=== PATIENT | female | born 1965 | race African-American/Black ===

== ENCOUNTER 2019-02-01 21:55 | Inpatient (IN) | payer MEDICAID, OTHER ==
[~2019-02-01] VITALS: Ht 167.6 cm; Wt 124.3 kg
[2019-02-01 21:54] VITALS: BP 136/86
[~2019-02-01 21:55] MED LIST: BACTRIM DS TAB1 EAC1 ORAL; CLINDAMYCIN HC150 MG ORAL; IBUPROFEN600 MG ORAL; KEFLEX500 MG ORAL; NORCO 10/3251 EA ORAL; NORCO 5-325 TA1 EACH ORAL; ROBAXIN-750750 MG PO
--- NOTE | 2019-02-01 21:58 | NUR ---
ED Nurse Note: Patient was BIBA fro home due to chest pain 03/18. Patient states that pain is radiating to the left arm. AAO x4, VSS at this time, skin is dry warm to touch.
--- NOTE | 2019-02-01 22:06 | Emergency Room Report ---
History of Present Illness General Chief Complaint: Chest Pain Source: Patient Present Illness HPI This is a 53-year-old female with a history of high blood pressure and hyperlipidemia. Also history of arthritis and chronic pain. She presents with chief lien of chest pain. Onset for last 2 hours. Pain to the left side going to her neck and upper arm. Pain is 7 out of 10. No nausea no vomiting. No exertional component. No diaphoresis. Also has lower extremity edema for the last 2 weeks. On and off. Better with elevation. Denies any other complaint. Allergies: Coded Allergies: SULFA (SULFONAMIDE ANTIBIOTICS) (Unverified Allergy, Severe, 08/12/14) CODEINE (Unverified Allergy, Unknown, 08/11/14) TRAMADOL (Unverified Allergy, Unknown, 08/11/14) Patient History Past Medical History: see triage record, old chart reviewed, HTN Past Surgical History: none Pertinent Family History: none Social History: Denies: smoking Now: No Immunizations: other Reviewed Nursing Documentation: PMH: Agreed; PSxH: Agreed Nursing Documentation-PMH Hx Hypertension: Yes Hx Diabetes: No - 4 C-SECTIONS Hx Cancer: No Hx Gastrointestinal Problems: No - CHOLECYSTECTOMY, BOIL REMOVAL 08/12/14 Hx Neurological Problems: No Review of Systems Eye: Denies: eye pain, blurred vision ENT: Denies: ear pain, nose congestion, throat swelling Respiratory: Denies: cough, shortness of breath Cardiovascular: Reports: chest pain, edema; Denies: palpitations Gastrointestinal: Denies: abdominal pain, diarrhea, nausea, vomiting Musculoskeletal: Denies: back pain, joint pain Skin: Denies: rash Neurological: Denies: headache, numbness Endocrine: Denies: increased thirst, increased urine Hematologic/Lymphatic: Denies: easy bruising All Other Systems: negative except mentioned in HPI Physical Exam Vital Signs Date Time Temp Pulse Resp B/P (MAP) Pulse Ox O2 Delivery O2 Flow Rate FiO2 02/01/19 21:49 98.4 72 18 136/86 (103) 97 Room Air Vitals normal Sp02 EP Interpretation: reviewed, normal General Appearance: well appearing, no apparent distress, alert Head: normocephalic, atraumatic Eyes: bilateral eye PERRL, bilateral eye EOMI ENT: hearing grossly normal, normal pharynx Neck: full range of motion, supple, no meningismus Respiratory: chest non-tender, lungs clear, normal breath sounds Cardiovascular #1: regular rate, rhythm, no murmur Gastrointestinal: normal bowel sounds, non tender, no mass, no organomegaly, no bruit, non-distended Musculoskeletal: back normal, gait/station normal, normal range of motion Psychiatric: mood/affect normal Skin: warm/dry Medical Decision Making Diagnostic Impression: Primary Impression: Chest pain Qualified Codes: R07.9 - Chest pain, unspecified Additional Impressions: Peripheral edema Morbid obesity with BMI of 40.0-44.9, adult ER Course Patient presents with chest pain. Risk factors include obesity, high blood pressure, hyperlipidemia. EKG is unremarkable. Her pain resolved with nitroglycerin. Will admit for further work-up. I discussed the case with Dr. Roger who will admit. Lab Results Impression labs unremarkable. EKG Diagnostic Results Rate: normal Rhythm: NSR ST Segments: no acute changes ASA given to the pt in ED: Yes Rhythm Strip Diag. Results EP Interpretation: yes Rate: 72 Rhythm: NSR, no PVC's, no ectopy Chest X-Ray Diagnostic Results Chest X-Ray Diagnostic Results : Chest X-Ray Ordered: Yes # of Views/Limited/Complete: 1 View Indication: Chest Pain EP Interpretation: Yes Interpretation: no consolidation, no effusion, no pneumothorax, no acute cardiopulmonary disease Impression: No acute disease Electronically Signed by: Edin Harding MD Last Vital Signs Date Time Temp Pulse Resp B/P (MAP) Pulse Ox O2 Delivery O2 Flow Rate FiO2 02/01/19 21:54 72 18 Room Air 02/01/19 21:54 98.4 136/86 97 Status: improved Disposition: ADMITTED INPATIENT Condition: Serious Edin Harding MD Feb 01, 2019 22:06
[2019-02-01] MEDS ORDERED: Aspirin Baby 81mg ORAL ONE (22:15)
[2019-02-01] MEDS ORDERED: Nitroglycerin Subl 0.4mg tab SL PRN (22:15)
[2019-02-01 22:34] LABS: BASOPHILS % (AUTO) 0.8 % (0.0-2.0); EOSINOPHILS % (AUTO) 3.7 % (0.0-3.0); HEMATOCRIT 39.8 % (37.0-47.0); HEMOGLOBIN 13.4 G/DL (12.0-16.0); LYMPHOCYTES % (AUTO) 25.8 % (20.0-45.0); MEAN CORPUSCULAR VOLUME 90 FL (80-99); MONOCYTES % (AUTO) 9.5 % (1.0-10.0); NEUTROPHILS % (AUTO) 60.2 % (45.0-75.0); PLATELET COUNT 246 K/UL (150-450); RED BLOOD COUNT 4.43 M/UL (4.20-5.40); RED CELL DISTRIBUTION WIDTH 11.5 % (11.6-14.8); WHITE BLOOD COUNT 5.4 K/UL (4.8-10.8)
--- NOTE | 2019-02-01 22:39 | NUR ---
ED Nurse Note: Administered first dose of Nitro at 2230, second dose at 2235. Patient states that chest pain went away. AAO x4, VSS at this time.
[2019-02-01 22:42] LABS: APPEARANCE,URINE CLEAR; COLOR,URINE PALE YELLOW
[2019-02-01 22:43] LABS: BILIRUBIN, URINE NEGATIVE (NEGATIVE); GLUCOSE, URINE (UA) NEGATIVE (NEGATIVE); KETONES,URINE NEGATIVE (NEGATIVE); LEUKOCYTE ESTERASE ,URINE NEGATIVE (NEGATIVE); NITRITE,URINE NEGATIVE (NEGATIVE); PROTEIN,URINE NEGATIVE (NEGATIVE); UROBILINOGEN,URINE NORMAL MG/DL (0.0-1.0)
[2019-02-01 22:46] LABS: ANION GAP 8 mmol/L (5-15); BLOOD UREA NITROGEN 20 mg/dL (7-18); CALCIUM 9.6 MG/DL (8.5-10.1); CARBON DIOXIDE 29 MMOL/L (21-32); CHLORIDE 109 MMOL/L (98-107); POTASSIUM 3.8 MMOL/L (3.5-5.1); SODIUM 146 MMOL/L (136-145)
[2019-02-01 23:00] LABS: ALANINE AMINOTRANSFERASE 40 U/L (12-78); ALBUMIN/GLOBULIN RATIO 1.1 (1.0-2.7); ALKALINE PHOSPHATASE 103 U/L (46-116); ASPARTATE AMINO TRANSFERASE 20 U/L (15-37); BILIRUBIN,TOTAL 0.6 MG/DL (0.2-1.0); CKMB 1.5 NG/ML (0.0-3.6); CREATINE KINASE 142 U/L (26-308)
[2019-02-01] MEDS ORDERED: Morphine Sulfate 4mg/ml Inj (IV USE ONLY) IVP ONE ×2 (23:00→23:15)
[2019-02-01 23:54] VITALS: BP 105/75
[2019-02-02] VITALS (7 sets, daily range): BP systolic 100–128; BP diastolic 58–73
--- NOTE | 2019-02-02 00:55 | NUR ---
ED Nurse Note: Patient was admited to TELE due to chest pain, lower leg pain. AAO x4, VSS at this time, skin is dry intact. Patient was transfered via gurney by ACLS protocol, with all belongings.
--- NOTE | 2019-02-02 01:10 | NUR ---
NURSE NOTES: Received patient from JAZMYNE Gallego from ED via neo. Patient awake showing no signs of acute distress. AOx4. Respiration even and non labored on room air. No sob noted. On pickling operator showing SR. VS: BP 125/71, HR 72, Temp. 97.2, RR 19, O2 sat 100% RA. Oriented to room and location. Belongings checked with ED nurse and remained at pt. bedside. Bed in lowest position, wheels locked and alarm on. Call light within reach. Called and left a message to Dr. Roger for Admission orders. Awaiting call back.
[2019-02-02] MEDS: 1/2NS w/KCl 20mEq 1000ml 1,000 ML IV SCH ×3 (02:33→20:54)
--- NOTE | 2019-02-02 07:23 | NUR ---
HAND-OFF: Report given to JAZMYNE Valdes.
--- NOTE | 2019-02-02 07:23 | NUR ---
NURSE NOTES: Received report from Neha RN. Patient sitting up in bed awake. No signs of acute distress. AOx4. Respiration even and non labored on 2L O2. No SOB noted. noted IV in RAC 20g running with 1/2NS w/KCL 20@100ml/hr patent and intact. Call light within reach, Bed in lowest position, wheels locked, and alarm on. All needs attended and met. Will continue plan of care.
[2019-02-02 07:35] LABS: ALANINE AMINOTRANSFERASE 123 U/L (12-78); ALBUMIN 3.5 G/DL (3.4-5.0); ALBUMIN/GLOBULIN RATIO 1.2 (1.0-2.7); ALKALINE PHOSPHATASE 99 U/L (46-116); ANION GAP 9 mmol/L (5-15); ASPARTATE AMINO TRANSFERASE 123 U/L (15-37); BILIRUBIN,TOTAL 0.7 MG/DL (0.2-1.0); BLOOD UREA NITROGEN 18 mg/dL (7-18); CALCIUM 8.7 MG/DL (8.5-10.1); CARBON DIOXIDE 26 MMOL/L (21-32); CHLORIDE 107 MMOL/L (98-107); CHOLESTEROL 108 MG/DL (< 200); CREATININE 0.9 MG/DL (0.55-1.30); HDL CHOLESTEROL 36 MG/DL (40-60); POTASSIUM 4.2 MMOL/L (3.5-5.1); SODIUM 141 MMOL/L (136-145); TRIGLYCERIDES 82 MG/DL (30-150)
[2019-02-02] MEDS: Aspirin EC 81mg tab ORAL SCH (08:55)
[2019-02-02] MEDS: Heparin 5000 units/ml inj SUBQ SCH ×2 (08:56→20:55)
[2019-02-02] MEDS ORDERED: Metoprolol Tartrate 12.5mg TAB ORAL SCH (09:00)
--- NOTE | 2019-02-02 09:40 | Diagnostic Imaging Report ---
Indication: Chest pain Comparison: None A single view chest radiograph was obtained. Findings: Cardiomediastinal appearance is within normal limits for age. The lungs are clear. Pulmonary vascularity is appropriate. The diaphragmatic contour is smooth and costophrenic angles are sharp. No pleural effusions are identified. The bones are unremarkable. Impression: No acute findings
[2019-02-02] MEDS: Triamterene/Hctz 37.5/25 cap ORAL SCH ×2 (12:30→13:57)
--- NOTE | 2019-02-02 12:31 | Diagnostic Imaging Report ---
APPROVED REPORT CPT Code: 37607 Present Symptoms Comments: Chest Pain and swelling BILATERAL: Imaging reveals a patent deep venous system bilaterally. There is no evidence of thrombus within the femoral, popliteal or tibial segments. The greater saphenous veins are also within normal limits. Doppler indicates normal spontaneous flow within these segments.
[2019-02-02 13:37] LABS: ALANINE AMINOTRANSFERASE 135 U/L (12-78); ALBUMIN 3.6 G/DL (3.4-5.0); ALKALINE PHOSPHATASE 107 U/L (46-116); ASPARTATE AMINO TRANSFERASE 105 U/L (15-37); BILIRUBIN,DIRECT 0.1 MG/DL (0.0-0.3); BILIRUBIN,TOTAL 0.7 MG/DL (0.2-1.0); CREATINE KINASE 90 U/L (26-308)
--- NOTE | 2019-02-02 14:26 | NUR ---
*-* INSURANCE *--* ALL AVAILABLE CLINICALS HAVE BEEN FAXED TO: KISHA ESCALONAM: FEMI P- [phone] F- [phone]......REVIEW/CLINICAL
--- NOTE | 2019-02-02 14:29 | NUR ---
CASE MANAGEMENT:REVIEW 53 YR OLD FEMALE BIBA FROM HOME CC: INTERMITTENT STERNAL CHEST PRESSURE RADIATING TO NECK, BACK AND LEFT ARM SI: CHEST PAIN. PERIPHERAL EDEMA 98.5 72 18 136/86 97% ON RA TROPONIN(-) IS: ASA PO IV MORPHINE X2 CHEST XRAY : TO TELEMETRY IS: IVF@100/HR HEPARIN SQ Q12 ASA PO QD
--- NOTE | 2019-02-02 14:51 | NUR ---
INTERQUAL CRITERIA MET FOR OBSERVATION ONLY
--- NOTE | 2019-02-02 15:38 | NUR ---
NURSE NOTES: Report received from JAZMYNE Valdes. Observed patient in bed. Awake and verbally responsive. Still complains of pain on bilateral legs which is tolerable at this time. On 2L of oxygen via N/C with no distress noted. IV site intact with ongoing IVF running at prescribed rate. Bed in lowest position. Call light within reach. Will continue to monitor.
--- NOTE | 2019-02-02 16:05 | NUR ---
HAND-OFF: Report given to Elvia SAMANO. Pt remains stable..
--- NOTE | 2019-02-02 19:33 | NUR ---
HAND-OFF: Report given to JAZMYNE Valencia. Stable condition.
--- NOTE | 2019-02-02 19:44 | NUR ---
NURSE NOTES: Report received from JAZMYNE Gan. Observed patient in bed, resting at this time. On room air, in no acute distress. IV site intact with ongoing IVF running at 100/hour. Bed in lowest position. Call light within reach. Will continue to monitor.
[2019-02-02] MEDS ORDERED: Lexiscan 0.4mg/5ml syringe IV ONE (22:30)
[2019-02-03] VITALS: BP 159/73
--- NOTE | 2019-02-03 01:18 | NUR ---
NURSE NOTES: Called Dr Roger as pt requested a sleeping pill. Left voicemail and will await response.
[2019-02-03] MEDS ORDERED: Zolpidem 5mg tab ORAL PRN (01:30)
--- NOTE | 2019-02-03 02:30 | History and Physical Report ---
DATE OF ADMISSION: 02/02/2019 REASON FOR ADMISSION: Chest pain. HISTORY OF PRESENT ILLNESS: This is a 53-year-old female with risk factors for premature coronary artery disease, who presented to the emergency room complaining of chest pain. She noted it occurring approximately 2 hours prior to admission, unprovoked, and radiated to her neck and arm. There was no associated shortness of breath or diaphoresis. The patient complains of 2 weeks of progressive leg swelling as well as some edema of her hands. She has not been eating any increased amount of salt or taking any extra fluids and has not had any recent illnesses. ALLERGIES: Include codeine, tramadol, and sulfa. MEDICATIONS: Her medications prior to admission are reviewed and reconciled. PAST MEDICAL HISTORY: Hypertension, hyperlipidemia, osteoarthritis, and chronic leg pain, etiology unclear. SURGICAL HISTORY: x4, cholecystectomy. FAMILY HISTORY: Not remarkable. REVIEW OF SYSTEMS: A 10-point review of systems performed. All systems negative other than noted above. PHYSICAL EXAMINATION: VITAL SIGNS: Blood pressure 136/86, pulse 72, respiratory rate 18, and afebrile. HEENT: Conjunctivae pink. Oropharynx clear. NECK: Supple. No jugular venous distention. No adenopathy. LUNGS: Clear. CHEST: No discrete breast masses. CARDIAC: Regular rhythm and rate. Normal S1, S2 with no murmur, rub, or gallop. ABDOMEN: Soft and nontender with no ascites. EXTREMITIES: 1+ bilateral pitting edema. LABORATORY AND DIAGNOSTIC DATA: EKG with sinus rhythm and no abnormalities. Chest x-ray with no acute process. Venous duplex scan is pending. Laboratories, white count 5.4, hemoglobin 13.4. Sodium 146, potassium 3.8, chloride 109, bicarbonate 29, BUN 20, and creatinine 1. Troponin negative. Initial liver function studies are within normal limits. Repeat liver function studies notable for AST 123 and ALT of 123. IMPRESSION: 1. Chest pain, suggesting an acute coronary syndrome. 2. Lower extremity edema, likely due to venous insufficiency. 3. Transaminitis, appeared to be acute based on available laboratory data. 4. Hypertension. 5. History of hyperlipidemia. PLAN: 1. Cardiac monitoring. 2. Serial troponins. 3. Venous duplex scan. 4. Repeat liver function studies. 5. Consider abdominal ultrasound. 6. Echocardiogram. 7. DVT prophylaxis. Sina Roger M.D. DR: Nilay JOB#: [id number] CC:
[2019-02-03 04:00] VITALS: BP 121/77
[2019-02-03] MEDS ORDERED: Lexiscan 0.4mg/5ml syringe IV PRN (06:43)
--- NOTE | 2019-02-03 07:30 | NUR ---
HAND-OFF: Report given to JAZMYNE Valdes.
--- NOTE | 2019-02-03 07:32 | NUR ---
NURSE NOTES: No sings of distress noted. On room air and denied SoB.
--- NOTE | 2019-02-03 07:32 | NUR ---
NURSE NOTES: Report received from Annie SAMANO. Patient in bed and US tech at the bedside for abd US. Reinforced NPO for stress test scheduling today. No c/o pain at this time. Bed in lowest position and locked. IV site in RAC 20G intact and symptomatic. Call light within easy reach. Will continue to plan of care.
[2019-02-03 08:00] VITALS: BP 140/73
[2019-02-03] MEDS: Aspirin EC 81mg tab ORAL SCH (08:12)
[2019-02-03] MEDS: Heparin 5000 units/ml inj SUBQ SCH (08:13)
--- NOTE | 2019-02-03 08:40 | NUR ---
NURSE NOTES: Pt left tele for cardiac procedure via W/C with Ming SAMANO
[2019-02-03 08:45] LABS: HEMATOCRIT 39.8 % (37.0-47.0); HEMOGLOBIN 13.7 G/DL (12.0-16.0); MEAN CORPUSCULAR VOLUME 87 FL (80-99); PLATELET COUNT 218 K/UL (150-450); RED BLOOD COUNT 4.56 M/UL (4.20-5.40); RED CELL DISTRIBUTION WIDTH 11.6 % (11.6-14.8); WHITE BLOOD COUNT 3.4 K/UL (4.8-10.8)
[2019-02-03 09:04] LABS: ALANINE AMINOTRANSFERASE 110 U/L (12-78); ALKALINE PHOSPHATASE 109 U/L (46-116); AMYLASE 50 U/L (25-115); ANION GAP 11 mmol/L (5-15); ASPARTATE AMINO TRANSFERASE 48 U/L (15-37); BILIRUBIN,DIRECT 0.1 MG/DL (0.0-0.3); BILIRUBIN,TOTAL 0.7 MG/DL (0.2-1.0); BLOOD UREA NITROGEN 16 mg/dL (7-18); CALCIUM 9.7 MG/DL (8.5-10.1); CARBON DIOXIDE 25 MMOL/L (21-32); CHLORIDE 104 MMOL/L (98-107); CREATININE 0.9 MG/DL (0.55-1.30); GAMMA GLUTAMYL TRANSPEPTIDASE 132 U/L (5-85); POTASSIUM 4.2 MMOL/L (3.5-5.1); SODIUM 140 MMOL/L (136-145)
--- NOTE | 2019-02-03 09:30 | NUR ---
NURSE NOTES: Pt returned back from cardiac procedure. No c/o pain or no signs of distress noted.
--- NOTE | 2019-02-03 09:36 | Diagnostic Imaging Report ---
Indication: Abdominal pain severe: Elevated LFTs Technique: A plantar grayscale and duplex Doppler imaging of the abdomen Comparison: No prior ultrasound available for comparison. Correlation made to CT of the abdomen on 3:15 Findings: Imaged portions of the pancreas head unremarkable in appearance. Note that the body and tail are not visualized. Imaged portions of the abdominal aorta are normal in caliber. Liver is within the upper limits for normal size. No focal hepatic mass lesion is appreciated sonographically. Hepatic contour appears smooth. Imaged hepatic veins patent. Main portal vein patent with normal direction of flow. No intrahepatic biliary ductal dilatation. The patient is again noted be status post cholecystectomy. Common bile duct measures5- 6 mm in diameter, within normal limits given patient's age and prior cholecystectomy. The kidneys are symmetric in size and demonstrate normal echogenicity. There is no hydronephrosis or sonographically appreciable renal stone. Spleen is mildly enlarged measuring approximately 14 cm in length. No ascites demonstrated. IMPRESSION: * Status post cholecystectomy. * Mild splenomegaly with the spleen measuring approximately 14 cm in length. Splenomegaly was noted previously.
[2019-02-03] MEDS: 1/2NS w/KCl 20mEq 1000ml 1,000 ML IV SCH (09:57)
--- NOTE | 2019-02-03 11:41 | Cardiology Report ---
APPROVED REPORT EKG Measurement Heart [id number] KS 166P30 [id number] Sinus bradycardia Otherwise normal ECG
[2019-02-03 11:44] VITALS: BP 137/68
--- NOTE | 2019-02-03 13:21 | NUR ---
Myocardial perfusion scan complete.
--- NOTE | 2019-02-03 13:33 | NUR ---
*-* INSURANCE *--* UPDATED CLINICALS HAVE BEEN FAXED TO: KISHA ESCALONAM: FEMI P- [phone] F- [phone]......REVIEW/CLINICAL
--- NOTE | 2019-02-03 13:54 | Diagnostic Imaging Report ---
Indications: Chest pain Technique: See cardiology report for details of LexiScan stress testing. During LexiScan infusion, IV administration 32.9 mCi 99 M technetium Myoview. SPECT and planar images obtained. SPECT images gated to 8 phases of the cardiac cycle were also obtained, and reformatted into cine images for evaluation of ejection fraction. On the subsequent day, resting images obtained using IV administration of 11 mCi 99 M technetium Myoview. Comparison:none Findings: Please see cardiology report of Lexiscan stress test. Clinical response to pharmacologic stress was reported as nonischemic. The echocardiographic response to pharmacologic stress was reported as nonischemic. Myocardial perfusion imaging demonstrates no fixed or reversible perfusion defects to suggest infarct or ischemia respectively. IMPRESSION: Myocardial perfusion imaging demonstrates no fixed or reversible perfusion defects to suggest infarct or ischemia, respectively.
--- NOTE | 2019-02-03 15:30 | NUR ---
Discharge: Patient is being discharged from medical care. Awake, alert and oriented x4. After care instructions given patient verbalized understanding of After care instructions; at this time patient does not request medications, equipment or placement. She picked up by her mother via private car. Patient signed patient consent in the medical record for patient destination upon discharge and denied any pain and no signs of distress noted. All medical devices such as IV, warp tension tester and ID band were removed. Patient ambulated out with all personal belongings with steady gait dnd RN assisted the pt to her mother's car.
--- NOTE | 2019-02-03 15:59 | Cardiology Report ---
APPROVED REPORT EKG Measurement Heart [id number] AR 162P45 [id number] Normal sinus rhythm Normal ECG
--- NOTE | 2019-02-04 | Progress Note ---
DATE: 02/03/2019 INTERNAL MEDICINE PROGRESS NOTE SUBJECTIVE: The patient has no chest pain or shortness of breath. Leg swelling has resolved. OBJECTIVE: VITAL SIGNS: Blood pressure 137/68, pulse 73, respirations 18, and afebrile. LUNGS: Clear. CARDIAC: Regular. Normal S1, S2 with no murmur. ABDOMEN: Soft. No ascites. No tenderness. EXTREMITIES: Without edema. LABORATORY AND IMAGING DATA: Myocardial perfusion scan was negative for ischemia or infarct and ejection fraction was normal. Abdominal ultrasound was unremarkable with prior cholecystectomy confirmed. White count is 3.4 and hemoglobin 13.7. Chemistry panel within normal limits. LFTs still slightly elevated although improving with regard to AST and ALT. IMPRESSION: 1. Transaminitis may be due to viral syndrome with no signs of cardiogenic insufficiency or congestive heart failure. 2. Venous insufficiency with edema resolved. PLAN: 1. Outpatient follow up with PMD within 2 weeks to recheck liver function studies. 2. Avoid alcohol intake at this time. 3. No additional medication therapy recommended. 4. Salt restriction and compression stocking for symptomatic venous insufficiency. Sina Roger M.D. DR: BRANDEN JOB#: [id number] CC:
--- NOTE | 2019-02-04 21:36 | Discharge Summary ---
Discharge Summary Discharge Summary _ DATE OF ADMISSION: 02/02/2019 DATE OF DISCHARGE: [birth year]03/1988 DISCHARGED BY: REASON FOR ADMISSION: 53 years old female with past medical history of hypertension, hyperlipidemia, osteoarthritis, chronic left leg pain, presented to emergency department complaining of chest pain. Chest pain acute about 2 hours prior to admission, was unprovoked and radiated to her neck and arm. There was no associated shortness of breath or diaphoresis. Patient complained of progressive 2 weeks leg swelling as well as some edema in her hands. Patient denied eating any increased amount of salt or taking any extra fluids. No recent illnesses. Upon evaluation troponin was negative. EKG revealed sinus rhythm, no acute ischemic changes, pro BNP 10. Initial liver enzymes were within normal limits , but repeated were notable for AST 123 , ALT 123. Chest x-ray revealed no acute cardiopulmonary pathology. Patient subsequently was admitted to monitored floor for workup of chest pain, rule out acute coronary syndrome. HOSPITAL COURSE: Patient admitted to monitored floor. Serial troponin were negative. EKG revealed no acute ischemic changes. Patient was ruled out for acute myocardial infarction. Antiplatelet therapy with aspiri and beta blockage provided. Nitroglycerin was on board as needed. Pain was addressed. DVT prophylaxis provided. Blood pressure was managed with beta-sravan and Dyazide. Electrolytes and renal parameters stable. Venous duplex bilateral lower extremity was negative for acute DVT. Echocardiogram demonstrated preserved ejection fraction of 55 to 60% with mild left ventricular hypertrophy. No evidence of wall motion abnormality. No evidence of pericardial effusion. Right ventricular systolic pressure of 15. Patient subsequently undergone myocardial perfusion stress test , which demonstrated no fixed or reversible perfusion defect to suggest infarct or ischemia. Lipid panel was stable. TSH was within normal limits. LFT were closely monitored. LFT trending down AST down to 48, ALT down to 110. Bilirubin remained within normal range. Abdominal ultrasound demonstrated status post cholecystectomy, mild splenomegaly with spleen measuring approximately 14 cm in length. Splenomegaly was noted previously as well. Kidneys demonstrated normal echogenicity. No ascites. Liver within upper limits for normal size . No focal hepatic mass or lesion was appreciated. Transaminitis could be due to viral syndrome , since no signs of cardiac insufficiency or congestive heart failure were present. Venous insufficiency with edema resolved. Patient was recommended to avoid alcohol intake. Patient was advised on outpatient follow-up with primary care provider within 2 weeks to recheck liver function studies. Salt restriction and compression stockings for symptomatic venous insufficiency was recommended. No further additional medication therapy was recommended. Patient clinically stabilized. Chest pain resolved. Patient subsequently was discharged home. Due to rapid and unexpected improvement patient condition patient was discharged in 1 day. FINAL DIAGNOSES: Lower extremity edema , likely due to venous insufficiency-resolved Transaminitis Hypertension Chest pain (acute PR was ruled out ) History of hyperlipidemia Morbid obesity, with BMI 44 DISCHARGE MEDICATIONS: See Medication Reconciliation list. DISCHARGE INSTRUCTIONS: Patient was discharged home. Follow up with primary care provider in 2 weeks to recheck liver function test I have been assigned to dictate discharge summary for this account. I was not involved in the patient's management. Vannessa Gannon NP Feb 04, 2019 21:36
--- NOTE | 2019-02-06 08:49 | Cardiology Report ---
APPROVED REPORT EXAM: Two-dimensional and M-mode echocardiogram with Doppler and color Doppler. INDICATION Chest Pain M-Mode DIMENSIONS IVSd0.8 (0.7-1.1cm)Left Atrium (MM)3.9 (1.6-4.0cm) LVDd5.3 (3.5-5.6cm)Aortic Root2.9 (2.0-3.7cm) PWd1.1 (0.7-1.1cm)Aortic Cusp Exc.2.2 (1.5-2.0cm) IVSs1.5 cm LVDs3.7 (2.5-4.0cm) PWs1.7 cm Normal left ventricular chamber size, systolic function and wall motion . Left ventricular ejection fraction estimated to be 55-60%. Mild left ventricular hypertrophy by 2-D. No evidence of pericardial effusion. All other cardiac chamber sizes are within normal limits. Aortic valve calcification with normal cusp excursion . Mildly thickened mitral valve leaflets with normal excursion. Mild mitral annulus and aortic root calcification. Pulmonic valve not well visualized. IVC at normal size with physiologic collapse . A color flow and spectral Doppler study was performed and revealed: No aortic insufficiency . Mitral inflow indicates normal left ventricular diastolic function. Trace mitral regurgitation. Mild tricuspid regurgitation. Tricuspid systolic velocities suggests peak right ventricular systolic pressure of 15mmHg. Mild pulmonic regurgitation .
--- NOTE | 2019-02-08 08:26 | Coder Physician Query ---
Clarification is required for compliance, coding accuracy, and to reflect severity of illness for this patient Dear Dr. NUNN Date: 02/08/2019 Slabber/CDS' Name : DAYSI Gonzalez REASON FOR ADMISSION: 53 years old female with past medical history of hypertension, hyperlipidemia, osteoarthritis, chronic left leg pain, presented to emergency department complaining of chest pain. Chest pain acute about 2 hours prior to admission, was unprovoked and radiated to her neck and arm. There was no associated shortness of breath or diaphoresis. Chest x-ray revealed no acute cardiopulmonary pathology. Chest pain (acute PA was ruled out ) Echocardiogram demonstrated preserved ejection fraction of 55 to 60% with mild left ventricular hypertrophy. No evidence of wall motion abnormality. No evidence of pericardial effusion. Please document the suspected etiology of Chest Pain: [] Aortic dissection [] Acute myocardial infarction [] Acute Coronary Syndrome [] Pericarditis [] Anxiety [] Cancer [] Pneumonia [] Costochondritis [] Pneumothorax [] GERD/Esophagitis [] Pulmonary embolism [] Other: [] Unable to determine JIM NUNN M.D. DATE & TIME Please also document in your Progress Notes and/or Discharge Summary and indicate if the condition was present on admission. MTDD
== END 2019-02-03 15:30 | disposition home or self-care (01) | DRG 145 ==
LOC: EDBD 21:55 → EMR 22:25 → EDBEDREQ 23:39 → 2E 02-02 00:13 → EDBEDREQ 02-02 00:37
DX: R07.81 Pleurodynia (principal); E66.01 Morbid (severe) obesity due to excess calories; I87.2 Venous insufficiency (chronic) (peripheral); Z68.41 Body mass index [BMI] 40.0-44.9, adult; Z88.6 Allergy status to analgesic agent; Z88.2 Allergy status to sulfonamides; I10 Essential (primary) hypertension; E78.5 Hyperlipidemia, unspecified; M19.90 Unspecified osteoarthritis, unspecified site; G89.29 Other chronic pain; M79.606 Pain in leg, unspecified; R74.0 Nonspecific elevation of levels of transaminase and lactic acid dehydrogenase [LDH]; Z90.49 Acquired absence of other specified parts of digestive tract
CPT/HCPCS: 36415; 71045; 76700; 78452; 80048; 80053; 80061; 80076; 81003; 82150; 82550; 82553; 82977; 83690; 83880; 84443; 84484; 85007; 85025; 93005; 93017; 93306; 93970; 96374; 99285; J2785

== ENCOUNTER 2019-02-14 20:54 | Emergency (ER) | payer OTHER ==
[~2019-02-14] VITALS: Ht 167.6 cm; Wt 122.5 kg
--- NOTE | 2019-02-14 21:10 | NUR ---
ED Nurse Note: pt walked in c/o pain and abscess in right 2nd finger, pt states she went to go get her nail done on feb 08 and ever since then the pain and pus worsen. no open wound at this time but yellow pustule noted on right 2nd finger with redness, will cont monitor.
[2019-02-14 21:11] VITALS: BP 159/89
[2019-02-14] MEDS ORDERED: Lidocaine 1% 10mg/ml/EPI 0.01mg/ml 20ml INJ ONE ×2 (21:21→21:30)
--- NOTE | 2019-02-14 21:24 | Emergency Room Report ---
History of Present Illness General Chief Complaint: Skin Rash/Abscess Source: Patient Present Illness HPI Is a 53-year-old female presented after increased swelling and pain to her finger. Patient reports having a recent nail procedure. She reports having increased pain as well as discomfort to the tip of the finger. Patient is right -hand dominant. She denies any fever. She is currently taking medications for low back pain. She denies any other locations of injury currently. Patient states she had epidural injection this morning. Allergies: Coded Allergies: SULFA (SULFONAMIDE ANTIBIOTICS) (Unverified Allergy, Severe, 08/12/14) HONEY (Verified Allergy, Unknown, 02/14/19) Patient History Past Medical History: see triage record Last Menstrual Period: Hyst Reviewed Nursing Documentation: PMH: Agreed; PSxH: Agreed Nursing Documentation-PMH Hx Hypertension: Yes Hx Diabetes: No - 4 C-SECTIONS Hx Cancer: No Hx Gastrointestinal Problems: No - CHOLECYSTECTOMY, BOIL REMOVAL 08/12/14 Hx Neurological Problems: No Review of Systems All Other Systems: negative except mentioned in HPI Physical Exam Vital Signs Date Time Temp Pulse Resp B/P (MAP) Pulse Ox O2 Delivery O2 Flow Rate FiO2 02/14/19 20:57 98.2 159/89 (112) 97 Room Air 02/14/19 21:11 86 18 General Appearance: well appearing, no apparent distress, obese Head: normocephalic, atraumatic ENT: hearing grossly normal, normal voice Neck: full range of motion, supple Respiratory: no respiratory distress, speaking full sentences Musculoskeletal: tenderness - swelling to distal phalanx with white discoloration Neurologic: normal gait Psychiatric: mood/affect normal Skin: no rash Procedures Incision and Drainage Incision and Drainage : Consent: Emergent Site: fingertip I & D Procedure: betadine prep Wound Location: upper extremity Wound's Depth, Shape: superficial Wound Length (cm): 0 Wound Explored: clean Anesthesia: Lidocaine w/ Epi Volume Anesthetic (ccs): 0 Patient Tolerated: Well Complications: None Medical Decision Making Diagnostic Impression: Primary Impression: Paronychia ER Course Patient presented for finger pain. Differential diagnosis include was not limited to abscess, felon, contact dermatitis among others. Patient appears to have a paronychial infection which is likely related to recent artificial nail use. Patient's distal nail fold was anesthetized with lidocaine with epi. The distal nail fold was subsequently incised and drained with a 18-gauge needle. There is good drainage of purulent material. Patient tolerated this well. Patient's artificial nail was removed per patient's request. There is noted be a fracture of the distal nail plate. There does not appear to be any laceration. Patient be given prescription for Keflex she was advised to have the wound rechecked in 2 to 3 days. Last Vital Signs Date Time Temp Pulse Resp B/P (MAP) Pulse Ox O2 Delivery O2 Flow Rate FiO2 02/14/19 21:11 98.2 86 18 159/89 97 Room Air Status: improved Disposition: HOME, SELF-CARE Condition: Stable Rom Rajput MD Feb 14, 2019 21:24
[2019-02-14] MEDS ORDERED: CEPHALEXIN500 MG ORAL (21:26)
[2019-02-14 21:32] VITALS: BP 135/76
--- NOTE | 2019-02-14 21:32 | NUR ---
ED Nurse Note: pt cleared to be d/c per ERMD, pt discharge and aftercare instruction provided w/ prescription, pt education navarro via discussion and handout, wound cleaned and dressing applied, pt verbalized understanding and agrees with plan, left w/ all belongings.
== END 2019-02-14 21:33 | disposition home or self-care (01) ==
LOC: EMR 21:33
DX: L03.011 Cellulitis of right finger (principal); Z88.2 Allergy status to sulfonamides; Z91.018 Allergy to other foods; I10 Essential (primary) hypertension; Z90.49 Acquired absence of other specified parts of digestive tract; M54.5 Low back pain; Z79.899 Other long term (current) drug therapy; E66.9 Obesity, unspecified; Z68.41 Body mass index [BMI] 40.0-44.9, adult
CPT/HCPCS: 10060; 99282

== ENCOUNTER 2019-04-29 15:47 | Emergency (ER) | payer OTHER ==
[~2019-04-29] VITALS: Ht 167.6 cm; Wt 122.5 kg
[~2019-04-29 15:47] MED LIST changes: +CEPHALEXIN500 MG ORAL
[2019-04-29] MEDS ORDERED: LIPITOR80 MG ORAL (15:51)
[2019-04-29] MEDS ORDERED: Meclizine 25mg tab ORAL ONE (16:00)
[2019-04-29 16:11] VITALS: BP 150/98
--- NOTE | 2019-04-29 16:19 | Emergency Room Report ---
History of Present Illness General Chief Complaint: Dizziness Source: Patient, EMS Present Illness HPI 54-year-old female history of hypertension, hyperlipidemia, obesity, multiple valves with regurgitation presents with dizziness when she turns her head, lightheadedness, lasting minutes, worse with position alleviated with rest and closing her eyes, severity is severe, symptoms last minutes, no chest pain no shortness of breath no abdominal pain, patient presents for evaluation. Allergies: Coded Allergies: SULFA (SULFONAMIDE ANTIBIOTICS) (Unverified Allergy, Severe, 08/12/14) HONEY (Verified Allergy, Unknown, 02/14/19) Patient History Past Medical History: see triage record Reviewed Nursing Documentation: PMH: Agreed; PSxH: Agreed Nursing Documentation-PMH Past Medical History: No History, Except For Hx Hypertension: Yes Hx Diabetes: No - 4 C-SECTIONS Hx Cancer: No Hx Gastrointestinal Problems: No - CHOLECYSTECTOMY, BOIL REMOVAL 08/12/14 Hx Neurological Problems: No Review of Systems All Other Systems: negative except mentioned in HPI Physical Exam Vital Signs Date Time Temp Pulse Resp B/P (MAP) Pulse Ox O2 Delivery O2 Flow Rate FiO2 04/29/19 15:48 97.7 72 16 150/98 (115) 99 Room Air Sp02 EP Interpretation: reviewed, normal General Appearance: well appearing, no apparent distress, alert Head: normocephalic, atraumatic Eyes: bilateral eye PERRL, bilateral eye EOMI ENT: uvula midline, moist mucus membranes Neck: supple, thyroid normal, supple/symm/no masses Respiratory: lungs clear, no respiratory distress, no retraction, no accessory muscle use Cardiovascular #1: normal peripheral pulses, regular rate, rhythm, no edema, no gallop, diastolic murmur, systolic murmur Gastrointestinal: non tender, soft, no guarding, no rebound Musculoskeletal: normal inspection Neurologic: alert, oriented x3, sand filler III-XII nml as tested, motor strength/tone normal, sensory intact, cerebellar normal, normal gait, speech normal, no pronator, other - [id number]-[id number] testing intact, no pronator, fatigable nystagmus to the left, turning her head re-elicits her symptoms Psychiatric: mood/affect normal Skin: no rash, warm/dry Medical Decision Making Diagnostic Impression: Primary Impression: Vertigo ER Course 54-year-old female presents with most likely vertigo, differential diagnosis includes stroke, dehydration, vertigo Patient with normal neurologic exam with fatigable nystagmus, reproducible with head movement Patient given meclizine with resolution of her symptoms Labs negative, EKG negative chest x-ray negative CT negative will disposition patient home with return precautions Laboratory Tests Test 04/29/19 16:11 White Blood Count 4.7 K/UL (4.8-10.8) L Red Blood Count 4.82 M/UL (4.20-5.40) Hemoglobin 14.6 G/DL (12.0-16.0) Hematocrit 43.0 % (37.0-47.0) Mean Corpuscular Volume 89 FL (80-99) Mean Corpuscular Hemoglobin 30.2 PG (27.0-31.0) Mean Corpuscular Hemoglobin Concent 33.8 G/DL (32.0-36.0) Red Cell Distribution Width 11.0 % (11.6-14.8) L Platelet Count 231 K/UL (150-450) Mean Platelet Volume 5.3 FL (6.5-10.1) L Neutrophils (%) (Auto) 61.2 % (45.0-75.0) Lymphocytes (%) (Auto) 28.0 % (20.0-45.0) Monocytes (%) (Auto) 8.0 % (1.0-10.0) Eosinophils (%) (Auto) 2.1 % (0.0-3.0) Basophils (%) (Auto) 0.8 % (0.0-2.0) Sodium Level 142 MMOL/L (136-145) Potassium Level 3.7 MMOL/L (3.5-5.1) Chloride Level 107 MMOL/L (98-107) Carbon Dioxide Level 25 MMOL/L (21-32) Anion Gap 10 mmol/L (5-15) Blood Urea Nitrogen 19 mg/dL (7-18) H Creatinine 0.9 MG/DL (0.55-1.30) Estimate Glomerular Filtration Rate > 60 mL/min (>60) Glucose Level 112 MG/DL (74-106) H Calcium Level 9.4 MG/DL (8.5-10.1) Total Bilirubin 0.5 MG/DL (0.2-1.0) Aspartate Amino Transferase (AST) 14 U/L (15-37) L Alanine Aminotransferase (ALT) 21 U/L (12-78) Alkaline Phosphatase 84 U/L (46-116) Troponin I 0.000 ng/mL (0.000-0.056) Total Protein 7.6 G/DL (6.4-8.2) Albumin 3.8 G/DL (3.4-5.0) Globulin 3.8 g/dL Albumin/Globulin Ratio 1.0 (1.0-2.7) Lipase 65 U/L (73-393) L EKG Diagnostic Results EKG Time: 16:04 EP Interpretation: NSR, rate 67, QTc 435, no acute ST elevations, normal axis Rhythm Strip Diag. Results Rhythm Strip Time: 16:18 EP Interpretation: yes Rate: 72 Rhythm: NSR, no PVC's, no ectopy Chest X-Ray Diagnostic Results Chest X-Ray Diagnostic Results : Chest X-Ray Ordered: Yes # of Views/Limited/Complete: 1 View Indication: Other - Dizziness EP Interpretation: Yes Interpretation: no consolidation, no effusion, no pneumothorax, no acute cardiopulmonary disease Impression: No acute disease Electronically Signed by: Cuba Benitez MD CT/MRI/US Diagnostic Results CT/MRI/US Diagnostic Results : Impression Patient : NOBLE CRAFT Referring Physician: Cuba Benitez MD ID Number: [id number] Service Date: 04/29/19 : 1965 Report Date: 04/29/19 Gender: F Accession No.: [id number] Location: [facility] Procedure: CT Head no Contrast EXAM: CT Head Without Intravenous Contrast CLINICAL HISTORY: DIZZY TECHNIQUE: Axial computed tomography images of the head brain without intravenous contrast. CTDI is 70.38 mGy and DLP is 1411 mGy-cm. One or more of the following dose reduction techniques were used: automated exposure control, adjustment of the mA and or kV according to patient size, use of iterative reconstruction technique. COMPARISON: No relevant prior studies available. FINDINGS: Brain: Unremarkable. No hemorrhage. No significant white matter disease. No edema. Ventricles: Unremarkable. No ventriculomegaly. Bones joints: Unremarkable. No acute fracture. Soft tissues: Unremarkable. Sinuses: Unremarkable as visualized. No acute sinusitis. Mastoid air cells: Unremarkable as visualized. No mastoid effusion. IMPRESSION: Unremarkable head brain CT. Dictated By: Cuba Vidal MD Electronically Signed By: Cuba Vidal MD Signed Date/Time 04/29/19 [id number] CC: Cuba Benitez MD Last Vital Signs Date Time Temp Pulse Resp B/P (MAP) Pulse Ox O2 Delivery O2 Flow Rate FiO2 04/29/19 16:11 97.7 16 150/98 99 Room Air 04/29/19 15:48 72 Disposition: HOME, SELF-CARE Condition: Stable Scripts Meclizine Hcl* (MECLIZINE*) 25 Mg Tablet 25 MG ORAL THREE TIMES A DAY PRN for for dizziness, #30 TAB Prov: Cuba Benitez MD 04/29/19 Referrals: [facility] Jonnathan Beatty [facility] Patient Instructions: Vertigo Additional Instructions: The patient was provided with discharge instructions, notified to follow-up with a primary care doctor and or specialist in the next 24-48 hours, and to return to the ED if they have worsening of their symptoms. Please note that this report is being documented using [email or web address] technology. This can lead to erroneous entry secondary to incorrect interpretation by the dictating instrument. FOLLOW-UP WITH NEUROLOGY OR ENT DOCTOR Cuba Benitez MD Apr 29, 2019 16:18
[2019-04-29 16:35] LABS: BASOPHILS % (AUTO) 0.8 % (0.0-2.0); EOSINOPHILS % (AUTO) 2.1 % (0.0-3.0); HEMOGLOBIN 14.6 G/DL (12.0-16.0); MEAN CORPUSCULAR VOLUME 89 FL (80-99); NEUTROPHILS % (AUTO) 61.2 % (45.0-75.0); PLATELET COUNT 231 K/UL (150-450); RED BLOOD COUNT 4.82 M/UL (4.20-5.40); WHITE BLOOD COUNT 4.7 K/UL (4.8-10.8)
--- NOTE | 2019-04-29 16:37 | Diagnostic Imaging Report ---
EXAM: XR Chest, 1 View CLINICAL HISTORY: DIZZY TECHNIQUE: Frontal view of the chest. COMPARISON: No relevant prior studies available. FINDINGS: Lungs: Limited hypoventilatory exam. No clear consolidation or vascular congestion. Pleural space: Unremarkable. No pneumothorax. Heart: Unremarkable. No cardiomegaly. Mediastinum: Unremarkable. Bones joints: Unremarkable. IMPRESSION: Limited hypoventilatory exam. No clear consolidation or vascular congestion.
[2019-04-29 16:38] LABS: ANION GAP 10 mmol/L (5-15); BLOOD UREA NITROGEN 19 mg/dL (7-18); CALCIUM 9.4 MG/DL (8.5-10.1); CARBON DIOXIDE 25 MMOL/L (21-32); CHLORIDE 107 MMOL/L (98-107); CREATININE 0.9 MG/DL (0.55-1.30); POTASSIUM 3.7 MMOL/L (3.5-5.1); SODIUM 142 MMOL/L (136-145)
[2019-04-29 16:43] LABS: ALANINE AMINOTRANSFERASE 21 U/L (12-78); ALBUMIN 3.8 G/DL (3.4-5.0); ALKALINE PHOSPHATASE 84 U/L (46-116); ASPARTATE AMINO TRANSFERASE 14 U/L (15-37); BILIRUBIN,TOTAL 0.5 MG/DL (0.2-1.0)
--- NOTE | 2019-04-29 16:52 | Diagnostic Imaging Report ---
EXAM: CT Head Without Intravenous Contrast CLINICAL HISTORY: DIZZY TECHNIQUE: Axial computed tomography images of the head brain without intravenous contrast. CTDI is 70.38 mGy and DLP is 1411 mGy-cm. One or more of the following dose reduction techniques were used: automated exposure control, adjustment of the mA and or kV according to patient size, use of iterative reconstruction technique. COMPARISON: No relevant prior studies available. FINDINGS: Brain: Unremarkable. No hemorrhage. No significant white matter disease. No edema. Ventricles: Unremarkable. No ventriculomegaly. Bones joints: Unremarkable. No acute fracture. Soft tissues: Unremarkable. Sinuses: Unremarkable as visualized. No acute sinusitis. Mastoid air cells: Unremarkable as visualized. No mastoid effusion. IMPRESSION: Unremarkable head brain CT.
[2019-04-29] MEDS ORDERED: MECLIZINE HCL25 MG ORAL (17:44)
[2019-04-29 18:03] LABS: APPEARANCE,URINE CLEAR; BILIRUBIN, URINE NEGATIVE (NEGATIVE); COLOR,URINE PALE YELLOW; GLUCOSE, URINE (UA) NEGATIVE (NEGATIVE); KETONES,URINE NEGATIVE (NEGATIVE); LEUKOCYTE ESTERASE ,URINE 1+ (NEGATIVE); NITRITE,URINE NEGATIVE (NEGATIVE); PH,URINE 8 (4.5-8.0); PROTEIN,URINE NEGATIVE (NEGATIVE); UROBILINOGEN,URINE NORMAL MG/DL (0.0-1.0)
[2019-04-29 18:30] VITALS: BP 138/70
--- NOTE | 2019-04-29 18:33 | NUR ---
ED Nurse Note: pt from home states she has been feeling dizzy. maria luz lou done labs drawn and sent pt medicated .
--- NOTE | 2019-04-29 18:34 | NUR ---
ER DISCHARGE NOTE: Patient is cleared to be discharged per ERMD, pt is aox4, on room air, with stable vital signs. pt was given dc and prescription instructions, pt was able to verbalize understanding, pt id band and iv site removed without complications. pt is able to ambulate with steady gait. pt took all belongings.
--- NOTE | 2019-04-30 17:18 | Cardiology Report ---
APPROVED REPORT EKG Measurement Heart [id number] Normal sinus rhythm Normal ECG
== END 2019-04-29 18:35 | disposition home or self-care (01) ==
LOC: EDBD 15:47 → EMR 16:22
DX: R42 Dizziness and giddiness (principal); I10 Essential (primary) hypertension; E78.5 Hyperlipidemia, unspecified; Z88.2 Allergy status to sulfonamides; Z91.018 Allergy to other foods; Z90.49 Acquired absence of other specified parts of digestive tract
CPT/HCPCS: 36415; 70450; 71045; 80053; 80307; 81003; 83690; 84484; 85025; 93005; 96360; Z7502; 99284

== ENCOUNTER 2019-09-22 23:14 | Emergency (ER) | payer OTHER ==
[~2019-09-22] VITALS: Ht 170.2 cm; Wt 124.7 kg
[~2019-09-22 23:14] MED LIST changes: +LIPITOR80 MG ORAL; +MECLIZINE HCL25 MG ORAL
[2019-09-22 23:48] VITALS: BP 126/79
--- NOTE | 2019-09-22 23:48 | NUR ---
ED Nurse Note: Pt ambulated into ED from home CO pain in legs bilaterally with pain in lower back, chest, and hands. Pt reports pain 10/10. Pt reports significant amounts of swelling over body and reports itching and slight burning sensation during urination. Pt reports this has happened once before and was a result of a kidney infection. VSS, awaiting ERMD.
--- NOTE | 2019-09-23 00:10 | NUR ---
ED Nurse Note: ERMD at bedside
--- NOTE | 2019-09-23 00:30 | NUR ---
ED Nurse Note: awaiting orders ERMD
--- NOTE | 2019-09-23 01:30 | NUR ---
ED Nurse Note: SCHEDULED MEDITECH DOWNTIME. please see paper chart
[2019-09-23 02:55] VITALS: BP 124/82
--- NOTE | 2019-09-23 05:52 | Emergency Room Report ---
History of Present Illness General Chief Complaint: Pain Source: Patient Present Illness [facility] This is a 54-year-old female with history of chronic pain and arthritis. She presents with 2 complaint. The first complaint is generalized body pain. Mostly in her legs she also states she has some swelling. Her pain medication not helping. No nausea no vomiting but no trauma. No fever. Pain is 10 out of 10. Worse with movement. Better with rest. Second complaint is that she has some dysuria and frequency. Onset for last couple days. No fever chills but no nausea no vomiting. History of UTI. No hematuria. Allergies: Coded Allergies: SULFA (SULFONAMIDE ANTIBIOTICS) (Unverified Allergy, Severe, 08/12/14) HONEY (Verified Allergy, Unknown, 02/14/19) Nursing Documentation-[facility] Hx Hypertension: Yes Hx Diabetes: No - 4 C-SECTIONS Hx Cancer: No Hx Gastrointestinal Problems: No - CHOLECYSTECTOMY, BOIL REMOVAL 08/12/14 Hx Neurological Problems: No Review of Systems Eye: Denies: eye pain, blurred vision ENT: Denies: ear pain, nose congestion, throat swelling Respiratory: Denies: cough, shortness of breath Cardiovascular: Denies: chest pain, palpitations Gastrointestinal: Denies: abdominal pain, diarrhea, nausea, vomiting Genitourinary: Reports: dysuria, frequency Musculoskeletal: Reports: back pain; Denies: joint pain Skin: Denies: rash Neurological: Denies: headache, numbness Endocrine: Denies: increased thirst, increased urine Hematologic/Lymphatic: Denies: easy bruising All Other Systems: negative except mentioned in HPI Physical Exam Vital Signs Date Time Temp Pulse Resp B/P (MAP) Pulse Ox O2 Delivery O2 Flow Rate FiO2 09/22/19 23:38 98.1 89 19 126/78 (94) 99 Room Air Vitals normal Sp02 EP Interpretation: reviewed, normal General Appearance: well appearing, no apparent distress, alert Head: normocephalic, atraumatic Eyes: bilateral eye PERRL, bilateral eye EOMI ENT: hearing grossly normal, normal pharynx Neck: full range of motion, supple, no meningismus Respiratory: chest non-tender, lungs clear, normal breath sounds Cardiovascular #1: regular rate, rhythm, no murmur Gastrointestinal: normal bowel sounds, non tender, no mass, no organomegaly, no bruit, non-distended Musculoskeletal: back normal, normal range of motion, gait/station normal, swelling - Trace edema Neurologic: alert, oriented Psychiatric: mood/affect normal Medical Decision Making Diagnostic Impression: Primary Impression: Exacerbation of chronic back pain Additional Impression: UTI (urinary tract infection) Qualified Codes: N30.00 - Acute cystitis without hematuria ER Course Presents with exacerbation of chronic pain. Better after dose of Dilaudid here. Also has UTI. This may exacerbate her pain. Rocephin given. Will discharge home. Last Vital Signs Date Time Temp Pulse Resp B/P (MAP) Pulse Ox O2 Delivery O2 Flow Rate FiO2 09/22/19 23:38 98.1 89 19 126/78 (94) 99 Room Air Status: improved Disposition: HOME, SELF-CARE Condition: Stable Referrals: NON PHYSICIAN (PCP) Edin Harding MD Sep 23, 2019 05:52
[2019-09-23 06:22] LABS: ANION GAP 11 mmol/L (5-15); BLOOD UREA NITROGEN 21 mg/dL (7-18); CALCIUM 9.5 MG/DL (8.5-10.1); CARBON DIOXIDE 26 MMOL/L (21-32); CHLORIDE 106 MMOL/L (98-107); CREATININE 0.9 MG/DL (0.55-1.30); POTASSIUM 4.2 MMOL/L (3.5-5.1); SODIUM 143 MMOL/L (136-145)
[2019-09-23 06:23] LABS: BILIRUBIN, URINE NEGATIVE (NEGATIVE); GLUCOSE, URINE (UA) NEGATIVE (NEGATIVE); KETONES,URINE 1+ (NEGATIVE); LEUKOCYTE ESTERASE ,URINE 3+ (NEGATIVE); NITRITE,URINE NEGATIVE (NEGATIVE); PH,URINE 6 (4.5-8.0); PROTEIN,URINE 2+ (NEGATIVE); UROBILINOGEN,URINE 1 MG/DL (0.0-1.0)
[2019-09-23 06:24] LABS: APPEARANCE,URINE SLIGHTLY CLOUDY; COLOR,URINE YELLOW
== END 2019-09-23 02:55 | disposition home or self-care (01) ==
LOC: EMR 09-23 00:02
DX: G89.29 Other chronic pain (principal); N30.00 Acute cystitis without hematuria; I10 Essential (primary) hypertension; Z88.2 Allergy status to sulfonamides; Z90.49 Acquired absence of other specified parts of digestive tract; M19.90 Unspecified osteoarthritis, unspecified site
CPT/HCPCS: 36415; 80048; 81001; 83880; 87086; 96374; 96375; J0696; J1170; J2405; Z7502; 99284

== ENCOUNTER 2020-03-10 18:14 | Emergency (ER) | payer OTHER ==
[~2020-03-10] VITALS: Ht 170.2 cm; Wt 136.1 kg
[2020-03-10 18:14] VITALS: BP 164/90
[2020-03-10] MEDS ORDERED: DiphenhydrAMINE 50mg/ml Inj IVP ONE (18:15)
--- NOTE | 2020-03-10 18:15 | NUR ---
ED Nurse Note: Patient brought into ED from home by ambulance RA 829 c/o abdominal pain diffusely on the anterior abdomen since last night around 11PM. patient is vomiting, yellow bile like content noted. patient reports drinking alcohol last night around 6pm patient is alert awake x4.
--- NOTE | 2020-03-10 18:24 | Emergency Room Report ---
History of Present Illness General Chief Complaint: Abdominal Pain Source: Patient, EMS Present Illness HPI Disclaimer: Please note that this report is being documented using DRAGON technology. This can lead to erroneous entry secondary to incorrect interpretation by the dictating instrument. HPI: 54-year-old female history of hypertension presents for evaluation of abdominal pain and vomiting. Symptoms started approximately midnight. She had eaten some fast food prior to onset. Reports diffuse abdominal cramping, persistent vomiting, inability to eat or drink and voluminous watery diarrhea. Denies melena or hematochezia. Denies hematemesis. Denies fever, chills, chest pain, shortness of breath, flank pain. Notes dark-colored urine and some dysuria without hematuria. Status post hysterectomy, cholecystectomy, hernia repair. She drank alcohol last night but cannot quantify how much. Denies drug use. Denies prior history of pancreatitis, cyclic vomiting syndrome or other abdominal issues. PMH: Hypertension, arthritis PSH: Cholecystectomy, hysterectomy, multiple sections, hernia repair, shoulder repair Allergies: Sulfa medications Social Hx: Alcohol use, denies tobacco, denies drug use Allergies: Coded Allergies: SULFA (SULFONAMIDE ANTIBIOTICS) (Unverified Allergy, Severe, 08/12/14) HONEY (Verified Allergy, Unknown, 02/14/19) COVID-19 Screening Contact w/high risk pt: No Experienced COVID-19 symptoms?: No COVID-19 Testing performed ASSOCIATE TECHNICIAN: No Nursing Documentation-PMH Hx Hypertension: Yes Hx Diabetes: No - 4 C-SECTIONS Hx Cancer: No Hx Gastrointestinal Problems: No - CHOLECYSTECTOMY, BOIL REMOVAL 08/12/14 Hx Neurological Problems: No Review of Systems All Other Systems: negative except mentioned in HPI Physical Exam Vital Signs Date Time Temp Pulse Resp B/P (MAP) Pulse Ox O2 Delivery O2 Flow Rate FiO2 03/10/20 18:10 97.2 100 18 164/90 (114) 98 Room Air General: Awake and alert, appears uncomfortable, morbidly obese HEENT: NC/AT. EOMI. Cardiovascular: RRR. S1 and S2 normal. No murmur appreciated Resp: Normal work of breathing. No cough, wheezing or crackles appreciated Abdomen: Abdomen is morbidly obese. Soft, nondistended. Only mildly tender to palpation. Cannot localize Skin: Intact. No abrasions, laceration or rash over the exposed skin MSK: Normal tone and bulk. Moving all extremities. No obvious deformity. Neuro: Awake and alert. Mentating appropriately. Medical Decision Making Diagnostic Impression: Primary Impression: UTI (urinary tract infection) Additional Impression: Gastroenteritis ER Course This is a 54-year-old female presenting for evaluation abdominal pain and vomiting since last night. Differential includes was not limited to gastritis, gastroenteritis, pancreatitis, hepatitis, bowel obstruction, nephrolithiasis, pyelonephritis, UTI, alcohol intoxication, substance abuse, cyclic vomiting syndrome to name a few. Patient arrives with stable vital signs, afebrile abdomen is soft nondistended. IV fluids, antiemetics ordered in addition to broad labs. Patient's belly is soft and I do not believe she requires emergent imaging at this time but will reevaluate after medication. 2200: Labs have returned largely within normal limits aside from evidence of an acute urinary tract infection. She was treated with ceftriaxone. Patient abdominal pain and vomiting continued after initial doses of antiemetics and IV fluids. CT scan was ordered but did not find any significant pathology. Intrarenal nephrolith was noted and evidence of prior cholecystectomy but otherwise largely unremarkable according to radiologist interpretation. Patient was found sleeping comfortably on reevaluation. Tolerating p.o. at bedside. Will continue on patient treat with antibiotics for urinary tract infection and symptomatic medications for vomiting and diarrhea. Laboratory Tests Test 03/10/20 18:17 03/10/20 20:00 White Blood Count 11.7 K/UL (4.8-10.8) H Red Blood Count 4.95 M/UL (4.20-5.40) Hemoglobin 14.5 G/DL (12.0-16.0) Hematocrit 43.3 % (37.0-47.0) Mean Corpuscular Volume 87 FL (80-99) Mean Corpuscular Hemoglobin 29.3 PG (27.0-31.0) Mean Corpuscular Hemoglobin Concent 33.5 G/DL (32.0-36.0) Red Cell Distribution Width 11.9 % (11.6-14.8) Platelet Count 322 K/UL (150-450) Mean Platelet Volume 5.9 FL (6.5-10.1) L Neutrophils (%) (Auto) 79.6 % (45.0-75.0) H Lymphocytes (%) (Auto) 16.4 % (20.0-45.0) L Monocytes (%) (Auto) 3.6 % (1.0-10.0) Eosinophils (%) (Auto) 0.0 % (0.0-3.0) Basophils (%) (Auto) 0.4 % (0.0-2.0) Sodium Level 143 MMOL/L (136-145) Potassium Level 3.4 MMOL/L (3.5-5.1) L Chloride Level 105 MMOL/L (98-107) Carbon Dioxide Level 21 MMOL/L (21-32) Anion Gap 18 mmol/L (5-15) H Blood Urea Nitrogen 21 mg/dL (7-18) H Creatinine 1.0 MG/DL (0.55-1.30) Estimated Glomerular Filtration Rate > 60 mL/min (>60) Glucose Level 126 MG/DL (74-106) H Calcium Level 9.6 MG/DL (8.5-10.1) Total Bilirubin 0.9 MG/DL (0.2-1.0) Aspartate Amino Transferase (AST) 19 U/L (15-37) Alanine Aminotransferase (ALT) 32 U/L (12-78) Alkaline Phosphatase 104 U/L (46-116) Total Protein 8.2 G/DL (6.4-8.2) Albumin 4.4 G/DL (3.4-5.0) Globulin 3.8 g/dL Albumin/Globulin Ratio 1.2 (1.0-2.7) Lipase 55 U/L (73-393) L Salicylates Level 0.9 ug/mL (2.8-20) L Acetaminophen Level < 2 MCG/ML (10-30) L Serum Alcohol < 3 mg/dL Urine Color Pale yellow Urine Appearance Slightly cloudy Urine pH 7 (4.5-8.0) Urine Specific [place] 1.010 (1.005-1.035) Urine Protein Negative (NEGATIVE) Urine Glucose (UA) Negative (NEGATIVE) Urine Ketones 1+ (NEGATIVE) H Urine Blood 2+ (NEGATIVE) H Urine Nitrite Negative (NEGATIVE) Urine Bilirubin Negative (NEGATIVE) Urine Urobilinogen Normal MG/DL (0.0-1.0) Urine Leukocyte Esterase 1+ (NEGATIVE) H Urine RBC 5-10 /HPF (0 - 2) H Urine WBC 10-15 /HPF (0 - 2) H Urine Squamous Epithelial Cells Moderate /LPF (NONE/OCC) H Urine Bacteria Moderate /HPF (NONE) H Urine Opiates Screen Negative (NEGATIVE) Urine Barbiturates Screen Negative (NEGATIVE) Phencyclidine (PCP) Screen Negative (NEGATIVE) Urine Amphetamines Screen Negative (NEGATIVE) Urine Benzodiazepines Screen Negative (NEGATIVE) Urine Cocaine Screen Negative (NEGATIVE) Urine Marijuana (THC) Screen Negative (NEGATIVE) CT/MRI/US Diagnostic Results CT/MRI/US Diagnostic Results : Impression IMPRESSION: 1. Nonobstructive 4 mm right nephrolith. 2. Prior cholecystectomy. Dictated By: Jorge Alberto Lay M.D. Electronically Signed By: Jorge Alberto Lay M.D. Signed Date/Time 03/10/202122 Last Vital Signs Date Time Temp Pulse Resp B/P (MAP) Pulse Ox O2 Delivery O2 Flow Rate FiO2 03/10/20 18:10 97.2 100 18 164/90 (114) 98 Room Air Disposition: HOME, SELF-CARE Condition: Improved Scripts Dicyclomine Hcl* (DICYCLOMINE HCL*) 10 Mg Capsule 10 MG ORAL TID, #10 CAP Prov: Iggy Meehan MD 03/10/20 Ondansetron Odt* (ZOFRAN ODT*) 4 Mg Tab.rapdis 4 MG BC EVERY 6 HOURS PRN for Nausea & Vomiting, #20 TAB 0 Refills Prov: Iggy Meehan MD 03/10/20 Cephalexin* (KEFLEX*) 500 Mg Capsule 500 MG ORAL EVERY 12 HOURS, #14 CAP 0 Refills Prov: Iggy Meehan MD 03/10/20 Iggy Meehan MD Mar 10, 2020 18:24
[2020-03-10 18:32] LABS: BASOPHILS % (AUTO) 0.4 % (0.0-2.0); HEMATOCRIT 43.3 % (37.0-47.0); HEMOGLOBIN 14.5 G/DL (12.0-16.0); LYMPHOCYTES % (AUTO) 16.4 % (20.0-45.0); MEAN CORPUSCULAR VOLUME 87 FL (80-99); MONOCYTES % (AUTO) 3.6 % (1.0-10.0); NEUTROPHILS % (AUTO) 79.6 % (45.0-75.0); PLATELET COUNT 322 K/UL (150-450); RED BLOOD COUNT 4.95 M/UL (4.20-5.40); RED CELL DISTRIBUTION WIDTH 11.9 % (11.6-14.8); WHITE BLOOD COUNT 11.7 K/UL (4.8-10.8)
[2020-03-10 18:39] LABS: ANION GAP 18 mmol/L (5-15); BLOOD UREA NITROGEN 21 mg/dL (7-18); CALCIUM 9.6 MG/DL (8.5-10.1); CARBON DIOXIDE 21 MMOL/L (21-32); CHLORIDE 105 MMOL/L (98-107); POTASSIUM 3.4 MMOL/L (3.5-5.1); SODIUM 143 MMOL/L (136-145)
[2020-03-10 18:43] LABS: ALANINE AMINOTRANSFERASE 32 U/L (12-78); ALBUMIN 4.4 G/DL (3.4-5.0); ALBUMIN/GLOBULIN RATIO 1.2 (1.0-2.7); ALKALINE PHOSPHATASE 104 U/L (46-116); ASPARTATE AMINO TRANSFERASE 19 U/L (15-37); BILIRUBIN,TOTAL 0.9 MG/DL (0.2-1.0)
--- NOTE | 2020-03-10 18:47 | NUR ---
Loida fan in ED - 03/10/20 at 1852 by JULIO C ED Nurse Note: patient unable to voide
--- NOTE | 2020-03-10 18:57 | NUR ---
ED Nurse Note: patient voided using bedside commode, however patient had diarrhea x1 as well, unable to collect urine sample at this time.
--- NOTE | 2020-03-10 19:02 | NUR ---
ED Nurse Note: pt resting in bed, states nausea still present. pt aao x 4. will continue to monitor. ERMD notified of nausea. awaiting further orders
[2020-03-10 19:04] VITALS: BP 163/92
--- NOTE | 2020-03-10 19:05 | NUR ---
HAND-OFF: Report given to Dulce SAMANO. endorsed all plan of care to Dulce SAMANO. .
[2020-03-10] MEDS ORDERED: Dicyclomine 20mg/2ml Inj IM ONE (19:15)
[2020-03-10] MEDS ORDERED: Metoclopramide 10mg/2ml Inj IVP ONE (19:15)
--- NOTE | 2020-03-10 19:15 | NUR ---
ED Nurse Note: all medications administered, pt tolerated well no adverse reactions noted. will continue to monitor.
[2020-03-10] MEDS ORDERED: Dicyclomine HCl 10mg/5ml oral soln ORAL ONE (19:30)
[2020-03-10] MEDS ORDERED: Dicyclomine HCl 10mg/5ml oral soln ONE (19:45)
[2020-03-10] MEDS ORDERED: Morphine Sulfate 4mg/ml Inj (IV USE ONLY) IVP ONE (20:15)
--- NOTE | 2020-03-10 20:20 | NUR ---
ED Nurse Note: pt complaining of 10/10 abdominal pain. ERMD notified. all medications administered, pt tolerated well no ss of distress noted. will continue to monitor,
[2020-03-10] MEDS ORDERED: Omnipaque-300 100ml vial INJ PRN (20:30)
[2020-03-10 20:39] LABS: BILIRUBIN, URINE NEGATIVE (NEGATIVE); COLOR,URINE PALE YELLOW; GLUCOSE, URINE (UA) NEGATIVE (NEGATIVE); KETONES,URINE 1+ (NEGATIVE); LEUKOCYTE ESTERASE ,URINE 1+ (NEGATIVE); NITRITE,URINE NEGATIVE (NEGATIVE); PH,URINE 7 (4.5-8.0); PROTEIN,URINE NEGATIVE (NEGATIVE); UROBILINOGEN,URINE NORMAL MG/DL (0.0-1.0)
[2020-03-10 20:42] LABS: APPEARANCE,URINE SLIGHTLY CLOUDY
[2020-03-10] MEDS ORDERED: cefTRIAXone 1 GM in NS 55 ML IVPB ONE (21:00)
[2020-03-10] MEDS ORDERED: CEPHALEXIN500 MG ORAL (21:03)
[2020-03-10] MEDS ORDERED: ONDANSETRON ODT4 MG BC (21:03)
[2020-03-10] MEDS ORDERED: DICYCLOMINE HCL10 MG ORAL (21:03)
--- NOTE | 2020-03-10 21:24 | Diagnostic Imaging Report ---
EXAM: CT Abdomen and Pelvis With Intravenous Contrast CLINICAL HISTORY: ABD PAIN TECHNIQUE: Axial computed tomography images of the abdomen and pelvis with intravenous contrast. CTDI is 21.8 mGy and DLP is 1235.2 mGy-cm. One or more of the following dose reduction techniques were used: automated exposure control, adjustment of the mA and/or kV according to patient size, use of iterative reconstruction technique. COMPARISON: 08/11/2014 FINDINGS: Lung bases: Unremarkable. No mass. No consolidation. ABDOMEN: Liver: Unremarkable. No mass. Gallbladder and bile ducts: Gallbladder is surgically absent. No ductal dilation. Pancreas: Unremarkable. No mass. No ductal dilation. Spleen: Unremarkable. No splenomegaly. Adrenals: Unremarkable. No mass. Kidneys and ureters: 4 mm nonobstructive right nephrolith. Stomach and bowel: Unremarkable. No obstruction. No mucosal thickening. PELVIS: Appendix: No findings to suggest acute appendicitis. Bladder: Unremarkable. No mass. Reproductive: Unremarkable as visualized. ABDOMEN and PELVIS: Intraperitoneal space: Unremarkable. No free air. No significant fluid collection. Bones/joints: Degenerative disc disease, most prominent at L5-S1. No acute fracture. No dislocation. Soft tissues: Unremarkable. Vasculature: Unremarkable. No abdominal aortic aneurysm. Lymph nodes: Unremarkable. No enlarged lymph nodes. IMPRESSION: 1. Nonobstructive 4 mm right nephrolith. 2. Prior cholecystectomy.
[2020-03-10 21:42] VITALS: BP 143/86
[2020-03-10 22:25] VITALS: BP 140/82
--- NOTE | 2020-03-10 22:25 | NUR ---
ER DISCHARGE NOTE: Patient is cleared to be discharged home per ERMD, pt is aox4, 99% on room air, with stable vital signs. pt was given dc and prescription instructions, pt was able to verbalize understanding, pt id band and iv site removed without complications. pt is able to ambulate with steady gait. pt took all belongings.
== END 2020-03-10 22:25 | disposition home or self-care (01) ==
LOC: EDBD 18:14 → EMR 20:04
DX: R10.9 Unspecified abdominal pain (principal); N39.0 Urinary tract infection, site not specified; K52.9 Noninfective gastroenteritis and colitis, unspecified; I10 Essential (primary) hypertension; Z90.49 Acquired absence of other specified parts of digestive tract; Z90.710 Acquired absence of both cervix and uterus; M19.90 Unspecified osteoarthritis, unspecified site; Z88.2 Allergy status to sulfonamides; N20.0 Calculus of kidney
CPT/HCPCS: 36415; 74177; 80053; 80307; 81003; 83690; 85025; 87086; 96361; 96365; 96375; G0480; G0481; J0500; J0696; J1200; J2270; J2405; J2765; J7030; Q9967; S0028; Z7502; 99285

== ENCOUNTER 2020-03-12 05:43 | Emergency (ER) | payer OTHER ==
[~2020-03-12] VITALS: Ht 170.2 cm; Wt 113.4 kg
[~2020-03-12 05:43] MED LIST changes: +DICYCLOMINE HCL10 MG ORAL; +ONDANSETRON ODT4 MG BC
[2020-03-12 05:44] VITALS: BP 152/86
[2020-03-12] MEDS ORDERED: GABAPENTIN100 MG ORAL (05:50)
[2020-03-12] MEDS ORDERED: IBUPROFEN600 M1 ORAL (05:50)
[2020-03-12] MEDS ORDERED: ASPIRIN81 MG ORAL (05:50)
[2020-03-12] MEDS ORDERED: AMLODIPINE BES2.5 MG ORAL (05:50)
--- NOTE | 2020-03-12 06:14 | Emergency Room Report ---
History of Present Illness General Chief Complaint: Abdominal Pain Source: Patient Present Illness HPI Patient returns with abdominal pain. She was seen Wednesday and told she had a diagnosis of food poisoning. Also she was also diagnosed with a urinary tract infection. She was unable to fill medications. She did fine most of Wednesday but the pain returned Wednesday night. She says diffuse. She rates it 10/10 at this time mostly constant. She is vomiting. There is no blood and she says it is only phlegm right now. She denies any change in her bowels. On Wednesday a CT was done. She does have a 4 mm renal stone but there is no obstruction. She has had a cholecystectomy. No fevers, chills, sore throat, chest pain, palpitations, diarrhea, dysuria, shortness of breath, joint pain, rashes, depression, anxiety, visual changes, dizziness, headache. Patient has a history of arthritis and back pain. Allergies: Coded Allergies: SULFA (SULFONAMIDE ANTIBIOTICS) (Unverified Allergy, Severe, 08/12/14) HONEY (Verified Allergy, Unknown, 02/14/19) COVID-19 Screening Contact w/high risk pt: No Experienced COVID-19 symptoms?: No COVID-19 Testing performed COMPOSITE TECHNICIAN: No Patient History Past Medical History: see triage record Past Surgical History: aron Social History: Reports: smoking; Denies: alcohol use, drug use Social History Narrative with , not working Reviewed Nursing Documentation: PMH: Agreed; PSxH: Agreed Nursing Documentation-PMH Past Medical History: No History, Except For Hx Hypertension: Yes Hx Diabetes: No - 4 C-SECTIONS Hx Cancer: No Hx Gastrointestinal Problems: No - CHOLECYSTECTOMY, BOIL REMOVAL 08/12/14 Hx Neurological Problems: No Review of Systems All Other Systems: negative except mentioned in HPI Physical Exam Vital Signs Date Time Temp Pulse Resp B/P (MAP) Pulse Ox O2 Delivery O2 Flow Rate FiO2 03/12/20 05:44 97.9 89 18 152/86 (108) 99 Room Air Sp02 EP Interpretation: reviewed, normal General Appearance: alert, non-toxic, moderate distress Head: normocephalic Eyes: bilateral eye normal inspection, bilateral eye PERRL ENT: moist mucus membranes Neck: supple Respiratory: lungs clear, normal breath sounds Cardiovascular #1: regular rate, rhythm Cardiovascular #2: 2+ radial (R) Gastrointestinal: normal bowel sounds, soft, no mass, non-distended, no guarding, no rebound, tenderness - but reported, decreased bowel sounds, overweight Genitourinary: no CVA tenderness Musculoskeletal: back normal, normal range of motion, gait/station normal Neurologic: alert, oriented x3, grossly normal Psychiatric: anxious - Due to pain Skin: no rash, warm/dry Medical Decision Making Diagnostic Impression: Primary Impression: Abdominal pain Qualified Codes: R10.84 - Generalized abdominal pain Additional Impression: Intractable nausea and vomiting ER Course Patient returns with generalized abdominal pain. Differential includes gastroenteritis, diverticulitis, pancreatitis, gastritis amongst others. Patient had a normal CT 2 days ago. Evaluation with labs. Treatment with IV hydration, Zofran, Pepcid and morphine. Repeated abdominal exams indicated. WBC now normal. Slightly low potassium. Ambulated to bathroom with less pain. C/O continued nausea and some pain (but better). Reglan and Benadryl ordered. Still nauseated and with pain. Will admit for observation. Repeat morphine. Repeat Zofran prior to transfer as still nauseated. Laboratory Tests Test 03/12/20 06:00 03/12/20 07:20 White Blood Count 7.0 K/UL (4.8-10.8) Red Blood Count 4.77 M/UL (4.20-5.40) Hemoglobin 14.1 G/DL (12.0-16.0) Hematocrit 41.8 % (37.0-47.0) Mean Corpuscular Volume 88 FL (80-99) Mean Corpuscular Hemoglobin 29.6 PG (27.0-31.0) Mean Corpuscular Hemoglobin Concent 33.7 G/DL (32.0-36.0) Red Cell Distribution Width 11.6 % (11.6-14.8) Platelet Count 254 K/UL (150-450) Mean Platelet Volume 5.6 FL (6.5-10.1) L Neutrophils (%) (Auto) 69.7 % (45.0-75.0) Lymphocytes (%) (Auto) 24.3 % (20.0-45.0) Monocytes (%) (Auto) 5.0 % (1.0-10.0) Eosinophils (%) (Auto) 0.4 % (0.0-3.0) Basophils (%) (Auto) 0.6 % (0.0-2.0) Sodium Level 140 MMOL/L (136-145) Potassium Level 3.3 MMOL/L (3.5-5.1) L Chloride Level 104 MMOL/L (98-107) Carbon Dioxide Level 20 MMOL/L (21-32) L Anion Gap 16 mmol/L (5-15) H Blood Urea Nitrogen 19 mg/dL (7-18) H Creatinine 1.0 MG/DL (0.55-1.30) Estimated Glomerular Filtration Rate > 60 mL/min (>60) Glucose Level 149 MG/DL (74-106) H Calcium Level 9.1 MG/DL (8.5-10.1) Total Bilirubin 1.1 MG/DL (0.2-1.0) H Direct Bilirubin 0.0 MG/DL (0.0-0.3) Aspartate Amino Transferase (AST) 49 U/L (15-37) H Alanine Aminotransferase (ALT) 59 U/L (12-78) Alkaline Phosphatase 96 U/L (46-116) Troponin I 0.000 ng/mL (0.000-0.056) Total Protein 8.0 G/DL (6.4-8.2) Albumin 4.1 G/DL (3.4-5.0) Globulin 3.9 g/dL Albumin/Globulin Ratio 1.1 (1.0-2.7) Lipase 74 U/L (73-393) Urine Color Pale yellow Urine Appearance Clear Urine pH 8 (4.5-8.0) Urine Specific [place] 1.015 (1.005-1.035) Urine Protein Negative (NEGATIVE) Urine Glucose (UA) Negative (NEGATIVE) Urine Ketones 1+ (NEGATIVE) H Urine Blood 2+ (NEGATIVE) H Urine Nitrite Negative (NEGATIVE) Urine Bilirubin Negative (NEGATIVE) Urine Urobilinogen Normal MG/DL (0.0-1.0) Urine Leukocyte Esterase 1+ (NEGATIVE) H Urine RBC 0-2 /HPF (0 - 2) Urine WBC 0-2 /HPF (0 - 2) Urine Squamous Epithelial Cells Occasional /LPF Urine Bacteria Occasional /HPF (NONE) Last Vital Signs Date Time Temp Pulse Resp B/P (MAP) Pulse Ox O2 Delivery O2 Flow Rate FiO2 03/12/20 13:19 97.8 80 16 141/85 99 Room Air Status: improved Disposition: PLACE IN OBSERVATION Condition: Serious Referrals: [facility],REFERRING (PCP) Sina Dickson MD Mar 12, 2020 06:14
[2020-03-12 06:15] LABS: BASOPHILS % (AUTO) 0.6 % (0.0-2.0); EOSINOPHILS % (AUTO) 0.4 % (0.0-3.0); HEMATOCRIT 41.8 % (37.0-47.0); HEMOGLOBIN 14.1 G/DL (12.0-16.0); LYMPHOCYTES % (AUTO) 24.3 % (20.0-45.0); MEAN CORPUSCULAR VOLUME 88 FL (80-99); NEUTROPHILS % (AUTO) 69.7 % (45.0-75.0); PLATELET COUNT 254 K/UL (150-450); RED BLOOD COUNT 4.77 M/UL (4.20-5.40); RED CELL DISTRIBUTION WIDTH 11.6 % (11.6-14.8)
[2020-03-12 06:23] LABS: ANION GAP 16 mmol/L (5-15); BLOOD UREA NITROGEN 19 mg/dL (7-18); CALCIUM 9.1 MG/DL (8.5-10.1); CARBON DIOXIDE 20 MMOL/L (21-32); CHLORIDE 104 MMOL/L (98-107); POTASSIUM 3.3 MMOL/L (3.5-5.1); SODIUM 140 MMOL/L (136-145)
[2020-03-12] MEDS ORDERED: Morphine Sulfate 4mg/ml Inj (IV USE ONLY) IVP ONE ×3 (06:30→11:30)
[2020-03-12 06:33] LABS: ALANINE AMINOTRANSFERASE 59 U/L (12-78); ALBUMIN 4.1 G/DL (3.4-5.0); ALBUMIN/GLOBULIN RATIO 1.1 (1.0-2.7); ALKALINE PHOSPHATASE 96 U/L (46-116); ASPARTATE AMINO TRANSFERASE 49 U/L (15-37); BILIRUBIN,TOTAL 1.1 MG/DL (0.2-1.0)
[2020-03-12 07:11] VITALS: BP 143/82
[2020-03-12] MEDS ORDERED: Metoclopramide 10mg/2ml Inj IVP ONE (07:30)
[2020-03-12] MEDS ORDERED: DiphenhydrAMINE 50mg/ml Inj IVP ONE (07:30)
[2020-03-12 07:52] LABS: APPEARANCE,URINE CLEAR; BILIRUBIN, URINE NEGATIVE (NEGATIVE); COLOR,URINE PALE YELLOW; GLUCOSE, URINE (UA) NEGATIVE (NEGATIVE); KETONES,URINE 1+ (NEGATIVE); LEUKOCYTE ESTERASE ,URINE 1+ (NEGATIVE); NITRITE,URINE NEGATIVE (NEGATIVE); PH,URINE 8 (4.5-8.0); PROTEIN,URINE NEGATIVE (NEGATIVE); UROBILINOGEN,URINE NORMAL MG/DL (0.0-1.0)
[2020-03-12 09:38] VITALS: BP 139/85
[2020-03-12 11:33] VITALS: BP 111/72
[2020-03-12 13:19] VITALS: BP 141/85
== END 2020-03-12 13:21 | disposition short-term general hospital (02) ==
LOC: EDUNIT# 05:43 → EDBD 05:43 → EMR 05:52
DX: R10.84 Generalized abdominal pain (principal); R11.2 Nausea with vomiting, unspecified; Z90.49 Acquired absence of other specified parts of digestive tract; N20.0 Calculus of kidney; Z88.2 Allergy status to sulfonamides; M19.90 Unspecified osteoarthritis, unspecified site; Z91.018 Allergy to other foods; F17.200 Nicotine dependence, unspecified, uncomplicated; E66.3 Overweight; Z68.39 Body mass index [BMI] 39.0-39.9, adult
CPT/HCPCS: 36415; 80053; 81003; 82248; 83690; 84484; 85025; 96361; 96374; 96375; 96376; J1200; J2270; J2405; J2765; J7030; S0028; Z7502; 99284

== ENCOUNTER 2020-07-27 | Emergency (ER) | payer OTHER ==
[~2020-07-27] VITALS: Ht 167.6 cm; Wt 127.0 kg
[~2020-07-27] MED LIST changes: +AMLODIPINE BES2.5 MG ORAL; +ASPIRIN81 MG ORAL; +GABAPENTIN100 MG ORAL; +IBUPROFEN600 M1 ORAL
[2020-07-27 00:30] VITALS: BP 126/69
--- NOTE | 2020-07-27 00:31 | Emergency Room Report ---
History of Present Illness General Chief Complaint: Abdominal Pain Source: Patient Present Illness HPI This is a 55-year-old female with multiple abdominal surgery. She presents with chief complaint of right lower quadrant pain. Pain been ongoing for a month but worse in the last few days. Pain is sharp in nature. She felt some swelling to her right lower quadrant pannus area. No fever chills but had nausea vomiting today. No diarrhea. Pain is 9 out of 10. Worse with palpation. Better with rest. Denies any other complaint. Allergies: Coded Allergies: SULFA (SULFONAMIDE ANTIBIOTICS) (Unverified Allergy, Severe, 08/12/14) HONEY (Verified Allergy, Unknown, 02/14/19) COVID-19 Screening Contact w/high risk pt: No Experienced COVID-19 symptoms?: No COVID-19 Testing performed INTERNAL INVESTIGATOR: No Patient History Past Medical History: see triage record, old chart reviewed Past Surgical History: aron, , hysterectomy Pertinent Family History: none Social History: Denies: smoking Last Menstrual Period: na Now: No Immunizations: other Reviewed Nursing Documentation: PMH: Agreed; PSxH: Agreed Nursing Documentation-PMH Hx Hypertension: Yes Hx Diabetes: No - 4 C-SECTIONS Hx Cancer: No Hx Gastrointestinal Problems: No - CHOLECYSTECTOMY, BOIL REMOVAL 08/12/14; RT groin hernia Hx Neurological Problems: No Review of Systems Eye: Denies: eye pain, blurred vision ENT: Denies: ear pain, nose congestion, throat swelling Respiratory: Denies: cough, shortness of breath Cardiovascular: Denies: chest pain, palpitations Gastrointestinal: Reports: abdominal pain, nausea, vomiting; Denies: diarrhea Musculoskeletal: Denies: back pain, joint pain Skin: Denies: rash Neurological: Denies: headache, numbness Endocrine: Denies: increased thirst, increased urine Hematologic/Lymphatic: Denies: easy bruising All Other Systems: negative except mentioned in HPI Physical Exam Vital Signs Date Time Temp Pulse Resp B/P (MAP) Pulse Ox O2 Delivery O2 Flow Rate FiO2 07/27/20 00:10 98.4 98 16 111/75 (87) 98 Room Air Vitals normal Sp02 EP Interpretation: reviewed, normal General Appearance: well appearing, no apparent distress, alert, obese Head: normocephalic, atraumatic Eyes: bilateral eye PERRL, bilateral eye EOMI ENT: hearing grossly normal, normal pharynx Neck: full range of motion, supple, no meningismus Respiratory: chest non-tender, lungs clear, normal breath sounds Cardiovascular #1: regular rate, rhythm, no murmur Gastrointestinal: normal bowel sounds, no mass, no organomegaly, no bruit, non- distended, tenderness - Tenderness to the right lower quadrant in the abdominal pannus area. Musculoskeletal: back normal, normal range of motion, gait/station normal Psychiatric: mood/affect normal Medical Decision Making Diagnostic Impression: Primary Impression: Abdominal pain Qualified Codes: R10.31 - Right lower quadrant pain ER Course Patient presents with abdominal pain. CT scan showed evidence of infection or obstruction. It did showed submucosal fat deposit throughout the colon and ileocecal valve. Is none [place] but raises the possibility of laboratory bowel disease. Patient said this finding was told to her few months ago. She had a colonoscopy 5 years ago and it was negative. She gets it every 10 years because of family history of colon cancer. CT/MRI/US Diagnostic Results CT/MRI/US Diagnostic Results : Imaging Test Ordered: CT abdomen pelvis Impression read by radiologist. No acute finding. Submucosal fat deposit throughout the colon and ileocecal valve. Last Vital Signs Date Time Temp Pulse Resp B/P (MAP) Pulse Ox O2 Delivery O2 Flow Rate FiO2 07/27/20 00:10 98.4 98 16 111/75 (87) 98 Room Air Status: improved Disposition: HOME, SELF-CARE Condition: Stable Scripts Ibuprofen* (MOTRIN*) 600 Mg Tablet 600 MG ORAL Q6H PRN for For Pain, #30 TAB 0 Refills Prov: Edin Harding MD 07/27/20 Hydrocodone/Acetaminophen 5-325* (HYDROCODONE/ACETAMINOPHEN 5-325*) 1 Each Tablet 1 TAB ORAL Q6H PRN for For Pain, #15 TAB 0 Refills Prov: Edin Harding MD 07/27/20 Referrals: NON PHYSICIAN (PCP) Patient Instructions: Abdominal Pain, Adult Additional Instructions: Follow-up with your DrSilvia In 7 days. Return if symptoms worsen. Edin Harding MD Jul 27, 2020 00:30
[2020-07-27] MEDS ORDERED: HYDROmorphone 1mg/ml Carpuject IVP ONE (00:45)
[2020-07-27 00:46] LABS: BASOPHILS % (AUTO) 0.8 % (0.0-2.0); EOSINOPHILS % (AUTO) 1.7 % (0.0-3.0); HEMATOCRIT 39.7 % (37.0-47.0); HEMOGLOBIN 14.4 G/DL (12.0-16.0); MEAN CORPUSCULAR VOLUME 84 FL (80-99); MONOCYTES % (AUTO) 6.5 % (1.0-10.0); PLATELET COUNT 261 K/UL (150-450); RED BLOOD COUNT 4.72 M/UL (4.20-5.40); RED CELL DISTRIBUTION WIDTH 13.2 % (11.6-14.8); WHITE BLOOD COUNT 6.3 K/UL (4.8-10.8)
[2020-07-27 00:48] LABS: APPEARANCE,URINE CLEAR; BILIRUBIN, URINE NEGATIVE (NEGATIVE); GLUCOSE, URINE (UA) NEGATIVE (NEGATIVE); KETONES,URINE NEGATIVE (NEGATIVE); LEUKOCYTE ESTERASE ,URINE NEGATIVE (NEGATIVE); NITRITE,URINE NEGATIVE (NEGATIVE); PH,URINE 5 (4.5-8.0); PROTEIN,URINE NEGATIVE (NEGATIVE); UROBILINOGEN,URINE NORMAL MG/DL (0.0-1.0)
[2020-07-27 00:49] LABS: COLOR,URINE PALE YELLOW
[2020-07-27 00:58] LABS: ANION GAP 7 mmol/L (5-15); BLOOD UREA NITROGEN 28 mg/dL (7-18); CALCIUM 9.3 MG/DL (8.5-10.1); CARBON DIOXIDE 28 MMOL/L (21-32); CHLORIDE 103 MMOL/L (98-107); CREATININE 1.1 MG/DL (0.55-1.30); POTASSIUM 4.1 MMOL/L (3.5-5.1); SODIUM 138 MMOL/L (136-145)
[2020-07-27 01:03] LABS: ALANINE AMINOTRANSFERASE 30 U/L (12-78); ALBUMIN 4.1 G/DL (3.4-5.0); ALBUMIN/GLOBULIN RATIO 1.1 (1.0-2.7); ALKALINE PHOSPHATASE 107 U/L (46-116); ASPARTATE AMINO TRANSFERASE 15 U/L (15-37); BILIRUBIN,TOTAL 0.6 MG/DL (0.2-1.0)
--- NOTE | 2020-07-27 01:39 | Diagnostic Imaging Report ---
EXAM: CT Abdomen and Pelvis Without Intravenous Contrast CLINICAL HISTORY: ABD PAIN TECHNIQUE: Axial computed tomography images of the abdomen and pelvis without intravenous contrast. CTDI is 17.90 mGy and DLP is 968.40 mGy-cm. One or more of the following dose reduction techniques were used: automated exposure control, adjustment of the mA and/or kV according to patient size, use of iterative reconstruction technique. COMPARISON: CT abdomen and pelvis 03/10/2020. FINDINGS: Lung bases: Mild opacity posterior basal right lower lobe which may represent atelectasis versus developing infectious/inflammatory process. ABDOMEN: Liver: Hepatomegaly with mild hepatic steatosis. Gallbladder and bile ducts: Status post cholecystectomy. No ductal dilation. Pancreas: Unremarkable. No ductal dilation. Spleen: Unremarkable. No splenomegaly. Adrenals: Unremarkable. No mass. Kidneys and ureters: 5 mm nonobstructing right renal calculus within the lower pole. Stomach and bowel: Submucosal fat deposition throughout the colon and ileocecal valve. No obstruction. PELVIS: Appendix: No findings to suggest acute appendicitis. Bladder: Unremarkable. No stones. Reproductive: Unremarkable as visualized. ABDOMEN and PELVIS: Intraperitoneal space: Unremarkable. No free air. No significant fluid collection. Bones/joints: Intervertebral disc space narrowing and endplate degenerative change at L5-S1. No acute fracture. No dislocation. Soft tissues: Unremarkable. Vasculature: Unremarkable. No abdominal aortic aneurysm. Lymph nodes: Unremarkable. No enlarged lymph nodes. IMPRESSION: 1. No acute findings in the abdomen or pelvis. 2. Status post cholecystectomy. 3. Nonobstructing right renal calculus. 4. Hepatomegaly with mild hepatic steatosis. 5. Submucosal fat deposition throughout the colon and ileocecal valve, is nonspecific but raises the possibility of inflammatory bowel disease. 6. Mild opacity posterior basal right lower lobe may represent atelectasis versus developing infectious/inflammatory process.
[2020-07-27] MEDS ORDERED: IBUPROFEN600 M1 ORAL (01:57)
[2020-07-27] MEDS ORDERED: HYDROCODON-ACE1 EA15 ORAL (01:57)
[2020-07-27 02:05] VITALS: BP 130/72
== END 2020-07-27 02:05 | disposition home or self-care (01) ==
LOC: EMR 00:18
DX: R10.31 Right lower quadrant pain (principal); I10 Essential (primary) hypertension; Z88.2 Allergy status to sulfonamides; Z91.018 Allergy to other foods; Z90.49 Acquired absence of other specified parts of digestive tract; Z90.710 Acquired absence of both cervix and uterus
CPT/HCPCS: 36415; 74176; 80053; 81003; 83690; 85025; 96361; 96374; 96375; J1170; J2405; J7030; Z7502; 99284

== ENCOUNTER 2020-08-19 22:00 | Emergency (ER) | payer OTHER ==
[~2020-08-19] VITALS: Ht 167.6 cm; Wt 126.1 kg
[~2020-08-19 22:00] MED LIST changes: +HYDROCODON-ACE1 EA15 ORAL
[2020-08-19 22:45] VITALS: BP 144/86
[2020-08-19] MEDS ORDERED: Morphine Sulfate 10mg/ml Inj IM ONE (22:45)
--- NOTE | 2020-08-19 22:45 | NUR ---
ED Nurse Note: Recieved pt walk in from home with c/o bilat leg and foot pain x 2 days at 10/10, aching and throbbing, pt denies cp, sob, or any other complaints or discomforts, pt is ambulatory and states she thinks its her arthritis, pt has prescription that cant be filled til 09/05 and asking for pain meds, pt assisted to bed and MD at bedside.
[2020-08-19] MEDS ORDERED: HYDROCODON-ACE1 EA15 ORAL (22:50)
[2020-08-19] MEDS ORDERED: CLINDAMYCIN HC300 MG ORAL (22:50)
--- NOTE | 2020-08-19 22:50 | Emergency Room Report ---
History of Present Illness General Chief Complaint: Pain Source: Patient, Medical Record Present Illness HPI This is a 55-year-old female with history of chronic pain. She presents with chief complaint of bilateral feet pain. Is a chronic problem but worse in the last week. She says she is out of her [place]. Pain is burning sensation to the soles of her feet. No fever chills but no drainage. No trauma. Pain is 9 out of 10. Worse with walking. Better with rest. She also has pain to her abdomen. This is a chronic problem. She said there is some redness. Worse with palpation. Better with rest. She was here about a month ago. CT scan was negative. Allergies: Coded Allergies: SULFA (SULFONAMIDE ANTIBIOTICS) (Unverified Allergy, Severe, 08/12/14) HONEY (Verified Allergy, Unknown, 02/14/19) COVID-19 Screening Contact w/high risk pt: No Experienced COVID-19 symptoms?: No COVID-19 Testing performed ACCOUNT FINANCIAL MANAGER: No Patient History Past Medical History: see triage record, old chart reviewed Past Surgical History: other Pertinent Family History: none Social History: Denies: smoking Now: No Immunizations: other Reviewed Nursing Documentation: PMH: Agreed; PSxH: Agreed Nursing Documentation-PMH Hx Hypertension: Yes Hx Diabetes: No - 4 C-SECTIONS Hx Cancer: No Hx Gastrointestinal Problems: No - CHOLECYSTECTOMY, BOIL REMOVAL 08/12/14; RT groin hernia Hx Neurological Problems: No Review of Systems Eye: Denies: eye pain, blurred vision ENT: Denies: ear pain, nose congestion, throat swelling Respiratory: Denies: cough, shortness of breath Cardiovascular: Denies: chest pain, palpitations Gastrointestinal: Reports: abdominal pain; Denies: diarrhea, nausea, vomiting Musculoskeletal: Reports: other; Denies: back pain, joint pain Skin: Denies: rash Neurological: Denies: headache, numbness Endocrine: Denies: increased thirst, increased urine Hematologic/Lymphatic: Denies: easy bruising All Other Systems: negative except mentioned in HPI Physical Exam Vital Signs Date Time Temp Pulse Resp B/P (MAP) Pulse Ox O2 Delivery O2 Flow Rate FiO2 08/19/20 22:34 97.5 80 16 144/86 (105) 100 Room Air Vitals normal except for high blood pressure Sp02 EP Interpretation: reviewed, normal General Appearance: well appearing, no apparent distress, alert, obese Head: normocephalic, atraumatic Eyes: bilateral eye PERRL, bilateral eye EOMI ENT: hearing grossly normal, normal pharynx Neck: full range of motion, supple, no meningismus Respiratory: chest non-tender, lungs clear, normal breath sounds Cardiovascular #1: regular rate, rhythm, no murmur Gastrointestinal: normal bowel sounds, non tender, no mass, no organomegaly, no bruit, non-distended, other - Right lower quadrant over her pannus, there is some small ulceration with surrounding erythema. No palpable fluctuance or abscess. Musculoskeletal: back normal, normal range of motion, gait/station normal, other - Bilateral feet: Tenderness to the sole of her feet. No swelling. No redness. Normal warmth. Psychiatric: mood/affect normal Medical Decision Making Diagnostic Impression: Primary Impression: Abdominal wall cellulitis Additional Impression: Peripheral neuropathy ER Course This patient presents with bilateral feet pain. Most likely neuropathy in nature. No evidence of any abscess or trauma. Her abdominal pain is from is chronic in nature. She may have small cellulitis. No deep infection. No necrotizing fasciitis. Last Vital Signs Date Time Temp Pulse Resp B/P (MAP) Pulse Ox O2 Delivery O2 Flow Rate FiO2 08/19/20 22:34 97.5 80 16 144/86 (105) 100 Room Air Status: improved Disposition: HOME, SELF-CARE Condition: Stable Scripts Hydrocodone/Acetaminophen 5-325* (HYDROCODONE/ACETAMINOPHEN 5-325*) 1 Each Tablet 1 TAB ORAL Q6H PRN for For Pain, #15 TAB 0 Refills Prov: Edin Harding MD 08/19/20 Clindamycin Hcl (CLINDAMYCIN HCL) 300 Mg Capsule 300 MG ORAL THREE TIMES A DAY, #21 CAP Prov: Edin Harding MD 08/19/20 Referrals: NON PHYSICIAN (PCP) Additional Instructions: Follow-up with your doctor in 7 days. Return if symptoms worsen. Edin Harding MD Aug 19, 2020 22:50
--- NOTE | 2020-08-19 23:10 | NUR ---
ER DISCHARGE NOTE: Patient is cleared to be discharged per ERMD, pt is aox4, on room air, with stable vital signs. pt was given dc and prescription instructions, pt was able to verbalize understanding, pt id band removed without complications. pt is able to ambulate with steady gait. pt took all belongings.
[2020-08-19 23:11] VITALS: BP 144/86
== END 2020-08-19 23:10 | disposition home or self-care (01) ==
LOC: EMR 22:14
DX: L03.311 Cellulitis of abdominal wall (principal); G62.9 Polyneuropathy, unspecified; I10 Essential (primary) hypertension; Z88.2 Allergy status to sulfonamides; Z91.018 Allergy to other foods; Z90.49 Acquired absence of other specified parts of digestive tract
CPT/HCPCS: 96372; 99282